=== PATIENT | female | born 1940 | race Caucasian/White ===

== ENCOUNTER → 2017-09-10 | Outpatient (CLI) | payer MEDICARE, MEDICAID ==
[~2017-09-10] MED LIST: ALBUTEROL2.5 MG/0.1 INH; ASPIR 8181 MG PO; ATORVASTATIN CA40 MG PO; AZITHROMYCIN 2250 MG PO; CARDIZEM CD240 MG PO; CARTIA XT240 M1 PO; CEFDINIR300 MG PO; COZAAR 25 MG TA25 M1 PO; DEMADEX 2020 MG/1 TA PO; DEMADEX20 MG PO; FUROSEMIDE 80 M80 MG PO; HUMALOG100 UNIT/1 SUBQ; HYDROCHLOROTHIA25 M2 PO; LANTUS SUBQ; LIPITOR80 MG PO; MACROBID 100 M100 M3 PO; METOLAZONE 2.52.5 M1 PO; MUCINEX600 MG PO; NOVOLOG100 UNIT/1 SUBQ; POTASSIUM20 PO; PREDNISONE 10 M10 M1 PO; PREDNISONE 20 M20 MG PO; PROTONIX40 M1 PO; TESSALON PERLE100 M1 PO; TRULICITY0.75 MG/0. INJECTION; TRULICITY0.75 MG/0. SUBQ
--- NOTE | 2017-10-11 10:53 | SLEEP ---
[address] [address] SLEEP STUDY REPORT Name: JOE BREWSTER Room: [facility]#: [id number] Admission: 09/10/17 Attend Phys: Eliseo Pino MD Discharge: Date of : 38 Report #: [id number] THIS REPORT FOR: //name// CC: Eliseo Pino This study has been reviewed in its entirety by a board certified sleep specialist DATE OF SERVICE: 09/10/2017 INDICATION FOR SLEEP STUDY: Excessive daytime sleepiness. INTERPRETATION: Total duration of the study is 399.9 minutes. During this time duration, we recorded a total sleep time of 233 minutes. The sleep initially was recorded at 10:46 p.m. The patient's light out time was 10:20 p.m. Overall sleep efficiency as mentioned is 58.1%, REM onset is first recorded at around midnight. N1 sleep duration is significantly elevated to 47%, N2 duration is 49%, there is no N3 sleep recorded and REM duration is 4%. This is a split night sleep study. During the initial part of the sleep study, the patient is not on CPAP therapy for 400 minutes. During this time duration, we recorded a sleep time of 233 minutes. This included 9.5 minutes in REM sleep, the rest being non-REM sleep. During the diagnostic portion of the sleep study, we recorded a large number of hypopneas. A total of 150 hypopneas were recorded in addition to 5 respiratory effort related arousals. The patient's overall apnea-hypopnea index was 38.7 with a respiratory disturbance index of 40. Body position data indicates the patient was observed in the supine position asleep for 131 minutes. The rest of the time, the patient was on the right side. Events did appear to be more common when the patient was lying supine. Supine apnea-hypopnea index was 44.6. Mean heart rate during the diagnostic portion of the sleep study was 88.3 with a periodic limb movement index elevated to 114. Periodic limb movement index with arousals was 29.7. Arousal index during the diagnostic portion of the sleep study was 65. We did record multiple desaturations. The patient spent 31.3 minutes below an O2 saturation of 88% during the diagnostic portion of the sleep study. There is also mention in the records that the patient being tried on positive airway pressure therapy; however, there is no documented sleep time on positive airway pressure therapy. My understanding from the records is that the patient may have had a short trial on CPAP. The pressure on the CPAP as mentioned is set as being zero; otherwise essentially, the whole sleep study is a diagnostic sleep study. IMPRESSION: Obstructive sleep apnea with nocturnal hypoxemia, [place] [address] SLEEP STUDY REPORT Name: JOE BREWSTER Room: [facility]#: [id number] Admission: 09/10/17 Attend Phys: Eliseo Pino MD Discharge: Date of : 38 Report #: [id number] RECOMMENDATIONS: 1. Recommend proceeding to a repeat sleep study for positive airway pressure titration. 2. Recommend avoiding driving or other activities requiring vigilance if drowsy. This entire sleep study was reviewed by board certified sleep physician. <ELECTRONICALLY SIGNED> By: Den Oliveros MD 10/11/17 1053 1431 1539Ajack Oliveros MD /nt
== END ==
LOC: M.SLEEPLAB 19:22
DX: G47.33 Obstructive sleep apnea (adult) (pediatric) (principal); J45.909 Unspecified asthma, uncomplicated; I12.9 Hypertensive chronic kidney disease with stage 1 through stage 4 chronic kidney disease, or unspecified chronic kidney disease; E11.22 Type 2 diabetes mellitus with diabetic chronic kidney disease; N18.3 Chronic kidney disease, stage 3 (moderate); Z79.4 Long term (current) use of insulin

== ENCOUNTER 2018-01-15 10:03 | Emergency (ER) | payer MEDICARE, MEDICAID ==
[~2018-01-15] VITALS: Ht 160 cm; Wt 97.5 kg
[~2018-01-15 10:03] MED LIST changes: -ATORVASTATIN CA40 MG PO; -AZITHROMYCIN 2250 MG PO; -CEFDINIR300 MG PO; -COZAAR 25 MG TA25 M1 PO; -DEMADEX 2020 MG/1 TA PO; -DEMADEX20 MG PO; -MACROBID 100 M100 M3 PO; -MUCINEX600 MG PO; -NOVOLOG100 UNIT/1 SUBQ; -POTASSIUM20 PO; -PREDNISONE 10 M10 M1 PO; -TRULICITY0.75 MG/0. INJECTION; -TRULICITY0.75 MG/0. SUBQ
[2018-01-15] MEDS ORDERED: TRULICITY0.75 MG/0. INJECTION (10:15)
[2018-01-15 10:34] LABS: ABSOLUTE BASOPHILS 0.1 thou/uL (0.0-0.2); ABSOLUTE EOSINOPHILS 0.3 thou/uL (0.0-0.7); ABSOLUTE LYMPHOCYTES 1.8 thou/uL (0.8-5.3); ABSOLUTE MONOCYTES 0.9 thou/uL (0.0-1.2); ABSOLUTE NEUTROPHILS 6.9 thou/uL (1.6-8.1); BASOPHILS 0.7 %; EOSINOPHILS 2.9 %; HEMATOCRIT 36.2 % (37.0-47.0); HEMOGLOBIN 12.1 gm/dL (12.0-15.0); LYMPHOCYTES 17.9 %; MCHC 33.4 g/dL (28.0-37.0); MCV 83.8 fL (80.0-100.0); MONOCYTES 9.2 %; MPV 7.6 fl. (7.2-11.1); NUCLEATED RBCS 0 /100WBC; PLATELET COUNT* 231 thou/uL (150-400); POLYS 69.3 %; RBC 4.32 mil/uL (4.20-5.00); RDW-CV 15.1 % (10.5-14.5); WBC 9.9 thou/uL (4.0-11.0)
[2018-01-15 10:43] LABS: INR 1.1; PROTIME 11.1 Seconds (9.20-11.50)
[2018-01-15 10:44] LABS: URINE BILIRUBIN NEGATIVE (Negative); URINE BLOOD NEGATIVE (Negative); URINE CLARITY CLEAR; URINE COLOR YELLOW; URINE GLUCOSE-RANDOM NEGATIVE (Negative); URINE KETONES NEGATIVE (Negative); URINE LEUKOCYTES TRACE (Negative); URINE NITRITE NEGATIVE (Negative); URINE PROTEIN NEGATIVE (Negative); URINE UROBILINOGEN 0.2 E.U./dl (0.2-1.0)
[2018-01-15 10:52] LABS: CASTS None Seen /LPF (None Seen); CRYSTALS None Seen /LPF (None Seen); MUCUS None Seen strn/LPF (None Seen); SQUAMOUS >10 Many /LPF (0-3); URINE RBC 0-2 Rare /HPF (0-2); URINE WBC 6-15 Few /HPF (0-5)
[2018-01-15 11:11] LABS: ANION GAP 5 mmol/L (7-16); BUN 34 mg/dL (7-18); CALCIUM 8.1 mg/dL (8.5-10.1); CHLORIDE 103 mmol/L (98-107); CO2 33 mmol/L (21-32); CREATININE 1.8 mg/dL (0.6-1.3); GLUCOSE 134 mg/dL (70-99); SODIUM 141 mmol/L (136-145)
[2018-01-15 11:15] LABS: ALBUMIN 3.1 g/dL (3.4-5.0); ALKALINE PHOSPHATASE 89 U/L (46-116); SGOT 17 U/L (15-37); SGPT 28 U/L (30-65); TOTAL BILIRUBIN 0.7 mg/dL (<0.1-1.0); TOTAL PROTEIN 6.8 g/dL (6.4-8.2)
[2018-01-15] MEDS ORDERED: POTASSIUM20 PO (12:09)
[2018-01-15] MEDS ORDERED: MACROBID 100 M100 M3 PO (12:09)
[2018-01-15 12:12] VITALS: BP 137/70
--- NOTE | 2018-01-15 16:24 | EKG ---
[place] [address] ELECTROCARDIOGRAM REPORT Name: JOE BREWSTER Room: [facility]#: [id number] Admission: 01/15/18 Attend Phys: Discharge: Date of : 38 Report #: [id number] THIS REPORT FOR: //name// [facility] ED Test Date: 2018-01-15 Test Time: 10:42:56 Pat Name: JOE BREWSTER Department: Room: Gender: F Professor Of Rhetoric: : 1940 Requested By: Sarah Jay Order Number: [id number] MD: Randell Martinez Measurements Intervals [place] Rate: 97 P: IN: QRS: 62 QRSD: 147 T: 21 QT: 381 QTc: 484 Interpretive Statements Atrial fibrillation Right bundle branch block Baseline wander in lead(s) V6 Compared to ECG 01/09/2017 08:24:45 Right bundle-branch block now present Electronically Signed On 01-15-2018 16:24:36 CDT by Randell Martinez [email or web address] <ELECTRONICALLY SIGNED> By: Randell Martinez MD, [facility] 01/15/18 1624 1042 104 Randell Martinez MD, FACC /EPI
== END 2018-01-15 12:43 | disposition home or self-care (01) ==
LOC: M.ERS 10:03
PROVIDERS: Physician Assistant Surgical
DX: N39.0 Urinary tract infection, site not specified (principal); R04.0 Epistaxis; E87.6 Hypokalemia; I11.0 Hypertensive heart disease with heart failure; I50.9 Heart failure, unspecified; I48.91 Unspecified atrial fibrillation; E11.9 Type 2 diabetes mellitus without complications; Z79.4 Long term (current) use of insulin

== ENCOUNTER 2018-01-23 12:02 | Emergency (ER) | payer MEDICARE, MEDICAID ==
[~2018-01-23] VITALS: Ht 160 cm; Wt 97.5 kg
[~2018-01-23 12:02] MED LIST changes: +MACROBID 100 M100 M3 PO; +POTASSIUM20 PO; +TRULICITY0.75 MG/0. INJECTION
[2018-01-23 13:42] LABS: ABSOLUTE BASOPHILS 0.1 thou/uL (0.0-0.2); ABSOLUTE EOSINOPHILS 0.2 thou/uL (0.0-0.7); ABSOLUTE LYMPHOCYTES 1.9 thou/uL (0.8-5.3); ABSOLUTE MONOCYTES 0.9 thou/uL (0.0-1.2); ABSOLUTE NEUTROPHILS 6.9 thou/uL (1.6-8.1); BASOPHILS 0.7 %; HEMATOCRIT 38.4 % (37.0-47.0); HEMOGLOBIN 12.7 gm/dL (12.0-15.0); LYMPHOCYTES 18.7 %; MCH 27.8 pg (26.0-34.0); MCHC 33.2 g/dL (28.0-37.0); MCV 83.8 fL (80.0-100.0); MONOCYTES 8.6 %; MPV 7.4 fl. (7.2-11.1); NUCLEATED RBCS 0 /100WBC; PLATELET COUNT* 259 thou/uL (150-400); RBC 4.58 mil/uL (4.20-5.00); RDW-CV 15.4 % (10.5-14.5); WBC 9.9 thou/uL (4.0-11.0)
[2018-01-23 13:52] LABS: APTT 27.2 Seconds (25.0-31.3); INR 1.1; PROTIME 10.9 Seconds (9.20-11.50)
[2018-01-23 13:59] LABS: CALCIUM 8.7 mg/dL (8.5-10.1); CREATININE 1.8 mg/dL (0.6-1.3); POTASSIUM 4.5 mmol/L (3.5-5.1)
[2018-01-23 14:01] LABS: ALBUMIN 3.4 g/dL (3.4-5.0); TOTAL BILIRUBIN 0.5 mg/dL (<0.1-1.0); TOTAL PROTEIN 7.3 g/dL (6.4-8.2)
[2018-01-23 14:27] VITALS: BP 117/63
== END 2018-01-23 14:28 | disposition home or self-care (01) ==
LOC: M.ERS 12:02
PROVIDERS: Physician Assistant
DX: R04.0 Epistaxis (principal); E11.65 Type 2 diabetes mellitus with hyperglycemia; I11.0 Hypertensive heart disease with heart failure; I50.9 Heart failure, unspecified; I48.91 Unspecified atrial fibrillation; Z79.4 Long term (current) use of insulin

== ENCOUNTER 2018-03-13 13:37 | Inpatient (IN) | payer MEDICARE, MEDICAID ==
[~2018-03-13] VITALS: Ht 160 cm; Wt 108.0 kg
[2018-03-13 13:43] VITALS: BP 134/46
[2018-03-13] MEDS ORDERED: NOVOLOG100 UNIT/1 SUBQ (13:47)
[2018-03-13] MEDS ORDERED: ATORVASTATIN CA40 MG PO (13:48)
[2018-03-13] MEDS ORDERED: COZAAR 25 MG TA25 M1 PO (13:49)
[2018-03-13] MEDS ORDERED: TRULICITY0.75 MG/0. SUBQ (13:50)
[2018-03-13 14:05] LABS: ABSOLUTE BASOPHILS 0.2 thou/uL (0.0-0.2); ABSOLUTE EOSINOPHILS 0.3 thou/uL (0.0-0.7); ABSOLUTE LYMPHOCYTES 1.9 thou/uL (0.8-5.3); ABSOLUTE MONOCYTES 0.8 thou/uL (0.0-1.2); ABSOLUTE NEUTROPHILS 6.3 thou/uL (1.6-8.1); BASOPHILS 1.6 %; EOSINOPHILS 3.3 %; HEMATOCRIT 29.1 % (37.0-47.0); HEMOGLOBIN 9.5 gm/dL (12.0-15.0); LYMPHOCYTES 19.9 %; MCH 26.9 pg (26.0-34.0); MCHC 32.6 g/dL (28.0-37.0); MCV 82.4 fL (80.0-100.0); MONOCYTES 8.3 %; MPV 7.3 fl. (7.2-11.1); NUCLEATED RBCS 0 /100WBC; PLATELET COUNT* 271 thou/uL (150-400); POLYS 66.9 %; RBC 3.54 mil/uL (4.20-5.00); RDW-CV 14.5 % (10.5-14.5); WBC 9.3 thou/uL (4.0-11.0)
[2018-03-13 14:12] LABS: ANION GAP 5 mmol/L (7-16); BUN 28 mg/dL (7-18); CHLORIDE 103 mmol/L (98-107); CO2 33 mmol/L (21-32); GLUCOSE 229 mg/dL (70-99); POTASSIUM 4.1 mmol/L (3.5-5.1); SODIUM 141 mmol/L (136-145)
[2018-03-13 14:23] LABS: ALBUMIN 3.2 g/dL (3.4-5.0); ALKALINE PHOSPHATASE 89 U/L (46-116); NT-PRO BRAIN NAT PEPTIDE 1130 pg/mL (<300); SGOT 12 U/L (15-37); SGPT 14 U/L (30-65); TOTAL BILIRUBIN 0.3 mg/dL (<0.1-1.0); TOTAL PROTEIN 6.8 g/dL (6.4-8.2); TROPONIN-I LEVEL <0.06 ng/mL (<0.06)
[2018-03-13 14:27] LABS: APTT 27.3 Seconds (25.0-31.3); INR 1.2; PROTIME 11.2 Seconds (9.20-11.50)
[2018-03-13 15:54] VITALS: BP 132/40
[2018-03-13 16:10] VITALS: BP 111/41
--- NOTE | 2018-03-13 17:40 | EKG ---
[place] [address] ELECTROCARDIOGRAM REPORT Name: JOE BREWSTER Room: [address] ADM IN .R.#: [id number] Admission: 03/13/18 Attend Phys: Georgi Garcia MD Discharge: Date of : 38 Report #: [id number] THIS REPORT FOR: //name// [facility] ED Test Date: 2018-03-13 Test Time: 13:49:06 Pat Name: JOE BREWSTER Department: Room: [facility] Gender: Development Disability Specialist: Saroj CHUNG : 1940 Requested By: Herrera Casiano Order Number: [id number] MD: Cuco Rosario Measurements Intervals [place] Rate: 68 P: [place]: QRS: 69 QRSD: 152 T: 34 QT: 434 QTc: 462 Interpretive Statements Atrial fibrillation Right bundle branch block Compared to ECG 01/15/2018 10:42:56 No significant changes Electronically Signed On 03-13-2018 17:40:08 CDT by Cuco Rosario [email or web address] <ELECTRONICALLY SIGNED> By: Cuco Rosario MD, [facility] 03/13/18 1740 1349 1349 Cuco Rosario MD, [facility] /EPI
[2018-03-13 20:00] VITALS: BP 126/54
[2018-03-14] VITALS (7 sets, daily range): BP systolic 123–140; BP diastolic 53–70
--- NOTE | 2018-03-14 03:07 | NUR ---
ASSUMED PT CARE RECEIVED REPORT RECEIVED FORM NURSE. PT IS ALERT AWAKE ORIENTED X4 PLEASANT. AFIB ON THE MONITOR. VITALS SINGS WITHIN NORMAL LIMIT. MEDICATION WERE ADMINISTERED INCLUDING INSULIN. ASSESSEMENT PERFORMED. REFER TO CHARTING. PT LAYINGI N BED ON 2 L NC SATURATION IN 95%. NO SOB NOTICED. HEW HEART RATE IS CONTROL BETWEEN 80 S AND 65S. WILL CONTINUE TO MONITOR.
[2018-03-14 04:50] LABS: CALCIUM 8.1 mg/dL (8.5-10.1); CREATININE 2.1 mg/dL (0.6-1.3); MAGNESIUM 2.1 mg/dL (1.8-2.4)
[2018-03-14 04:54] LABS: POTASSIUM 5.1 mmol/L (3.5-5.1)
--- NOTE | 2018-03-14 10:39 | NUR ---
ASSUMED CARE OF PT AT 0730. PT RESTING IN BED WAITING FOR BREAKFAST. PT A&0X4, DENIES ANY PAIN OR SHORTNESS OF BREATH AT THIS TIME. PT TRACING AFIB ON THE WAREHOUSE RECEIVER, RATE CONTROLLED. EDEMA NOTED TO BILATERAL LE'S AND FEET-+1. PT RECEIVING LASIX AND STEROIDS. PT ON STRICT I/O, CALLS APPROPRAITELY TO GO TO THE BATHROOM WITH SBA. PT ON RA SAT 93%. PT DOES HAVE SHORTNESS OF BREATH WITH ACTIVITY, PT WEARS 2L NC AT [facility]. COLOSTOMY TO DEPENDENT DRAINAGE. PT GOAL FOR TODAY IS TO INCREASE ACTIVITY, MONITOR I/O AND UP TO CHAIR FOR MEALS. AM ASSESSMENT CHARTED. MEDICATIONS PER OCT. PT REPOSITIONS SELF. HOURLY ROUNDING OBSERVED. BED IN LOW POSITION. CALL LIGHT WITHIN REACH. WILL CONTINUE PLAN OF CARE.
--- NOTE | 2018-03-14 11:01 | 2DMMODE ---
[place] [address] 2 D/M-MODE ECHOCARDIOGRAM Name: JOE BREWSTER Room: [address] IN .R.#: [id number] Admission: 03/13/18 Attend Phys: Georgi Garcia, Discharge: Date of : 38 Date of Service: 03/14/18 1101 Report #: [id number] THIS REPORT FOR: //name// APPROVED REPORT Study performed: 03/14/2018 09:06:39 EXAM: Comprehensive 2D, Doppler, and color-flow Echocardiogram Patient Location: Bedside BSA: 2.06 HR: 75 bpm BP: 130/66 mmHg Other Information Study Quality: Fair Indications Dyspnea 2D Dimensions LVEF(%): 78.29 (>50%) IVSd: 10.83 (7-11mm) LVOT Diam: 21.18 (18-24mm) LVDd: 58.35 mm PWd: 10.34 (7-11mm) Ascending Ao: 28.66 (22-36mm) LVDs: 30.58 (25-40mm) Aortic Root: 30.06 mm Branch's LVEF: 78.29 % Volumes Left Atrial Volume (Systole) LA ESV Index: 56.40 mL/m2 Aortic Valve AoV Peak Kal.: 2.64 m/s AO Peak Gr.: 27.88 mmHg LVOT Max P.60 mmHg AO Mean Gr.: 16.50 mmHg LVOT Mean P.23 mmHg LVOT Max V: 1.18 m/s AO V2 VTI: 57.48 cm LVOT Mean V: 0.84 m/s ALEXX (VTI): 1.64 cm2 LVOT V1 VTI: 26.80 cm Mitral Valve MV Mean Gr.: 5.61 mmHg E/A Ratio: 5.44 MV Decel. Time: 215.48 ms MV E Max Kal.: 1.46 m/[place] [address] 2 D/M-MODE ECHOCARDIOGRAM Name: JOE BREWSTER Room: [address] IN ..#: [id number] Admission: 03/13/18 Attend Phys: Georgi Garcia, Discharge: Date of : 38 Date of Service: 03/14/18 1101 Report #: [id number] MV PHT: 62.49 ms MVA (PHT): 3.52 cm2 TDI E/Lateral E': 13.27 E/Medial E': 14.60 Medial E' Kal.: 0.10 m/s Lateral E' Kal.: 0.11 m/s Pulmonary Valve PV Peak Kal.: 1.03 m/s PV Peak Gr.: 4.28 mmHg Tricuspid Valve RAP Estimate: 5.00 mmHg TR Peak Gr.: 32.91 mmHg RVSP: 37.91 mmHg PA Pressure: 37.91 mmHg Left Ventricle The left ventricle is normal size. There is normal LV segmental wall motion. Moderate concentric left ventricular hypertrophy. Left ventricular systolic function is normal. LVEF is 60-65%. The left ventricular diastolic function is normal. Right Ventricle Right ventricle is dilated. Right ventricle is mildly hypokinetic. Atria Left atrium is dilated. Right atrium is dilated. Aortic Valve Aortic valve is calcified. No aortic regurgitation is present. Mild aortic stenosis. Mitral Valve There is mitral annular calcification. Mitral valve leaflets are calcified. Mild mitral regurgitation. No evidence of mitral valve stenosis. Tricuspid Valve The tricuspid valve is normal in structure. Moderate tricuspid regurgitation. Pulmonic Valve The pulmonary valve is normal in structure. There is no pulmonic valv[place] [address] 2 D/M-MODE ECHOCARDIOGRAM Name: JOE BREWSTER Room: [address]#: [id number] Admission: 03/13/18 Attend Phys: Georgi Garcia, Discharge: Date of : 38 Date of Service: 03/14/18 1101 Report #: [id number] Great Vessels The aortic root is normal in size. IVC is normal in size and collapses with >50% inspiration Pericardium There is no pericardial effusion. <Conclusion> LVEF is 60-65%. There is normal LV segmental wall motion. LVEF is 60-65%. Moderate concentric left ventricular hypertrophy. Right ventricle is dilated. Right ventricle is mildly hypokinetic. Left atrium is dilated. Right atrium is dilated. Mild aortic stenosis. No aortic regurgitation is present. Mild mitral regurgitation. No evidence of mitral valve stenosis. There is mitral annular calcification. Mitral valve leaflets are calcified. Moderate tricuspid regurgitation. There is no pericardial effusion. <ELECTRONICALLY SIGNED> By: Alexx Pearl MD, FACC 03/14/18 1101 1101 1101 Alexx Pearl MD, FACC /INF
--- NOTE | 2018-03-14 16:02 | NUR ---
NO ACUTE CHANGES THROUGHOUT SHIFT. REFER TO CHARTING. PT UP TO RECLINER TODAY FOR MEALS, TOLERATED WELL. PT HAD ECHO TODAY- EF 60-65%. PT FAMILY HERE TODAY AND UPDATED ON CURRENT CARE PLAN. PT PROGRESSING TOWARDS GOALS. CONTINUES TO TRACE AFIB ON THE DRUG ROOM CLERK. ON RA SAT UPPER 90'S. STRICT I/O IN PLACE. PT RECEIVING IV LASIX AND STEROIDS. MEDICATIONS PER OCT. PT REPOSITIONS SELF. HOURLY ROUNDING OBSERVED. BED IN LOW POSITION. CALL LIGHT WITHIN REACH. WILL CONTINUE PLAN OF CARE.
[2018-03-15 00:01] VITALS: BP 109/58
[2018-03-15 04:02] VITALS: BP 139/40
--- NOTE | 2018-03-15 05:35 | NUR ---
ASSUMED CARE OF PATIENT AT 1930. PATIENT SLEPT WELL THROUGHOUT THE NIGHT. PATIENT IS A&O X4, UP AD RADHA IN HER ROOM. ALL VSS. A-FIB WITH CONTROLLED RATES NOTED ON TELEMETRY. PATIENT IS ON ROOM AIR DURING THE DAY AND 2L NC AT HS. PATIENT DENIES PAIN. VOIDING WELL IN THE TOILET; CARES FOR COLOSTOMY HERSELF. WILL CONTINUE TO MONITOR PT.
[2018-03-15 05:50] LABS: CALCIUM 7.9 mg/dL (8.5-10.1); MAGNESIUM 2.2 mg/dL (1.8-2.4); POTASSIUM 4.7 mmol/L (3.5-5.1)
[2018-03-15 08:00] VITALS: BP 137/59
--- NOTE | 2018-03-15 10:44 | NUR ---
ASSUMED CARE OF PT AT 0730. PT RESTING IN BED WAITING FOR BREAKFAST. PT A&0X4, DENIES ANY SHORTNESS OF BREATH OR PAIN AT THIS TIME. PT STATES SHE IS READY TO GO HOME. TRACING AFIB ON THE CELL INSTALLER. RATE CONTROLLED. +1 EDEMA NOTED TO BILATERAL FEET. PT ON RA SAT UPPER 90'S. COLOSTOMY TO DEPENDENT DRAIANGE- PT CARES FOR OWN COLOSTOMY. PT UP AD RADHA IN ROOM. STRICT I/O IN PLACE. PT HAD REPEAT CXR THIS AM-REFER TO RESULTS. PT GOAL FOR TODAY IS TO DISCHARGE HOME THIS AFTERNOON AND TRANSITION TO PO LASIX. AM ASSESSMENT CHARTED. MEDICATIONS PER OCT. PT REPOSITIONS SELF. HOURLY ROUNDING OBSERVED. BED IN LOW POSITION. CALL LIGHT WITHIN REACH. WILL CONTINUE PLAN OF CARE.
[2018-03-15 12:15] VITALS: BP 144/60
[2018-03-15 16:50] VITALS: BP 109/60
--- NOTE | 2018-03-15 18:47 | NUR ---
NO ACUTE CHANGES THROUGHOUT SHIFT. REFER TO CHARTING. DR LIN HERE TO SEE PT AND ORDERS RECEIVED FOR NEPHROLOGY CONSULT, RENAL ULTRASOUND AND CT CHEST. REFER TO RESULTS. PT CONTINUES TO TRACE AFIB ON THE STEEL POURER. IV LASIX TRANSITIONED TO PO. PROGRESSING TOWARDS GOALS. PROBABLE DISCHARGE HOME TOMORROW 03/16. PT ON RA SAT UPPER 90'S. DENIES ANY SHORTNESS OF BREATH OR PAIN. COLOSTOMY TO DEPENDENT DRAINAGE. PT UP AD RADHA IN ROOM. STRICT I/O IN PLACE. MEDICATIONS PER OCT. PT REPOSITIONS SELF. HOURLY ROUNDING OBSERVED. BED IN LOW POSITION. CALL LIGHT WITHIN REACH. WILL CONTINUE PLAN OF CARE.
[2018-03-15 20:00] VITALS: BP 123/58
[2018-03-16] VITALS: BP 118/57
[2018-03-16 04:00] VITALS: BP 119/59
--- NOTE | 2018-03-16 04:56 | NUR ---
END SHIFT: PT RESTED WELL. NO COMPLAINTS. NO PAIN. 2L NC APPLIED FOR HS PER HOME DOSE. VSS. ASSESSMENT UNCHANGED. AFIB ON MONITOR- RATE CONTROLLED. PATIENT FOLLOWS STRICT I&O VERY WELL. COLOSTOMY BAG DRAINED OVER SHIFT. AWAITING DC TO HOME. PROGRESSING TOWARDS GOALS. SAFETY PRECAUTIONS IN PLACE. CALL LIGHT IN REACH. PERFORMED HOURLY ROUNDING. WILL CONT TO MONITOR.
[2018-03-16 05:41] LABS: HEMATOCRIT 28.8 % (37.0-47.0); HEMOGLOBIN 9.4 gm/dL (12.0-15.0); MCH 26.6 pg (26.0-34.0); MCHC 32.7 g/dL (28.0-37.0); MCV 81.5 fL (80.0-100.0); MPV 7.6 fl. (7.2-11.1); RBC 3.54 mil/uL (4.20-5.00); RDW-CV 14.7 % (10.5-14.5); WBC 11.9 thou/uL (4.0-11.0)
[2018-03-16 06:43] LABS: ALBUMIN 3.2 g/dL (3.4-5.0); CREATININE 1.8 mg/dL (0.6-1.3); MAGNESIUM 2.2 mg/dL (1.8-2.4); POTASSIUM 3.9 mmol/L (3.5-5.1); TOTAL BILIRUBIN 0.3 mg/dL (<0.1-1.0); TOTAL PROTEIN 6.1 g/dL (6.4-8.2)
[2018-03-16 07:59] VITALS: BP 159/72
--- NOTE | 2018-03-16 09:59 | NUR ---
ASSUMED CARE OF PT THIS AM AROUND 0715- ETHERNET NETWORK ARCHITECT IN PLACE ORDERED, TRACING A-FIB/RATE CONTROLLED- UPON ASSESSMENT PT NOTED TO BE RESTING IN BED, WATCHING TV- PT A&O X4- CONTINENT OF BOWEL AND BLADDER- UP AD-RADHA IN ROOM, STEADY GAIT NOTED- EXPIRATORY WHEEZING WITH NOTED COUGHT NOTED- RESP EVEN AND UN-LABORED AT REST, DYSPNEA NOTED ON EXERTION- VSS, O2 SAT 93% ON RA- ABDOMEN SOFT/ROUND/OBESE, BS ACTIVE- LLQ COLOSTOMY NOTED WITH LIGT BROWN SEMI-SOFT STOOL NOTED-COLOSTOMY NOTED TO LEAK THIS AM WITH NEW 2 PIECE APPLIANCE REPLACED THIS AM- IV NOTED TO RIGHT WRIST INTACT ANS SL, IV LASIX GIVEN THIS AM PRESCIBED-GOOD PO INTAKE NOTED THIS AM WITH BREAKFAST, BS MONITORED ORDERED, SCHEDULED AND SSI INDICATED- PT DENIES ANY C/O PAIN/DISCOMFORT THIS AM- CALL LIGHT AND PERSONAL BELONGINGS WITH IN REACH- HOURLY ROUNDS IN PLACE R/T SAFETY/NEEDS- ALL NEEDS MET AT THIS TIME-WCTM
[2018-03-16 12:14] VITALS: BP 131/65
[2018-03-16 15:36] VITALS: BP 116/55
[2018-03-16] MEDS ORDERED: DEMADEX 2020 MG/1 TA PO (16:16)
[2018-03-16] MEDS ORDERED: POTASSIUM20 PO (16:17)
--- NOTE | 2018-03-16 16:38 | NUR ---
ORDERS RECIVED FOR OKAY TO D/C HOME THIS SHIFT PER - IV TO RIGHT WRIST ALONG WITH SHOE SHANKER D/C'D PRIOR TO D/C- D/C EDUCATION/TEACHING GIVEN TO PT AND FAMILY MEMBER AT TIME OF D/C WITH ALL QUESTIONS AND CONCERNS ADDRESSED PRIOR TO D/C- WRITTEN EDUCATION ALONG WITH WRITTEN SCRIPTS PROVIDED TO PT PRIOR TO D/C- BELONGINGS PACKED AND ACCOUNTED FOR PER PT AND FAMILY MEMBER PRIOR TO D/C- PT ESCORTED PER TECH, VIA W/C WITH BELONGINGS TO VEHICLE AT 1640- NO PROBLEMS TO NOTE AT TIME OF D/C
--- NOTE | 2018-03-17 11:11 | CON ---
[address] [address] CONSULTATION Name: JOE BREWSTER Room: [address] IN .R.#: [id number] Admission: 03/13/18 Attend Phys: Georgi Garcia MD Discharge: 03/16/18 Date of : 38 Report #: [id number] THIS REPORT FOR: //name// CC: Eliseo Garcia DATE OF SERVICE: 03/15/2018 Nephrology Consultation CONSULTING PHYSICIAN: Dr. Henderson. REASON FOR CONSULTATION: Acute kidney injury. HISTORY OF PRESENT ILLNESS: A 77-year-old female who was admitted with shortness of breath and lower extremity edema. She was on Lasix 80 mg, taking it mostly once a day, occasionally twice a day, but had worsening of her symptoms and came in for further evaluation. She has been seen by cardiology and has been put on IV diuretics. Her swelling is markedly improved. Her shortness of breath has improved. She presently has no complaints. She sees Dr. House as an outpatient, last saw him on 11/29. REVIEW OF SYSTEMS: Constitutional, psych, heme, eyes, ENT, respiratory, cardiac, GI, , endocrine, all negative except as documented above. PAST MEDICAL HISTORY: Chronic kidney disease stage 3, hypertension, diabetes type 2, history of GERD, a-fib, sleep apnea, dyslipidemia, history of colon resection. FAMILY HISTORY: Father had kidney disease. SOCIAL HISTORY: No tobacco. PHYSICAL EXAMINATION: VITAL SIGNS: Blood pressure 109/60, pulse 81, respirations 17, temperature 36.9. GENERAL: No acute distress. EYES: Opens eyes. Extraocular muscles intact. EARS: Externally normal. CARDIOVASCULAR: Regular rate. LUNGS: Diminished breath sounds. ABDOMEN: Soft. LYMPHATICS: No significant pitting edema. PSYCHIATRIC: Awake and alert. LABORATORY DATA: White cell count 9.3, hemoglobin 9.5, platelets 271[place] [address] CONSULTATION Name: JOE BREWSTER Room: [address]#: [id number] Admission: 03/13/18 Attend Phys: Georgi Garcia MD Discharge: 03/16/18 Date of : 38 Report #: [id number] 139, potassium 4.7, chloride 103, bicarbonate 32, BUN 51, creatinine 2, glucose 211, calcium 7.9, magnesium 2.2. ASSESSMENT: 1. Acute kidney injury. 2. Chronic kidney disease stage 4. 3. Diastolic heart failure. 4. Insulin-dependent diabetes. 5. Atrial fibrillation. 6. Mild proteinuria with an outpatient urine protein to creatinine ratio of 225. PLAN: Renal function appears to be stable on current dose of diuretic. Her creatinine in the last 3 days has been 2 to 2.1. This may be a new baseline. Looking back, on 01/31, it was 1.8. In 06/2017, her creatinine was 2. She is currently on a diuretic, which cardiology is managing and has just recently reduced, okay with me to transition to oral diuretic. We will defer to cardiology. She is also on losartan. We would consider holding it if the creatinine bumps up with diuresis, but at present time, creatinine overall appears to be stable and similar to the value from 06/2017. From my standpoint, she can follow up as an outpatient with Dr. House in 2 to 3 weeks and have a basic metabolic panel done in 1 week upon discharge. She was educated on a low sodium diet, as well as 1.5 L per day fluid restriction. Thank you for requesting my opinion in the care and management of this patient. I will sign off. Please call with any questions. <ELECTRONICALLY SIGNED> By: Marcial Lyons MD 03/17/18 1111 1702 0339Ataye Lyons MD /nt
--- NOTE | 2018-03-27 12:52 | CON ---
[address] [address] CONSULTATION Name: JOE BREWSTER Room: [address] IN M.R.#: [id number] Admission: 03/13/18 Attend Phys: Georgi Garcia MD Discharge: 03/16/18 Date of : 38 Report #: [id number] THIS REPORT FOR: //name// CC: Eliseo Garcia DATE OF SERVICE: 03/14/2018 CHIEF COMPLAINT: Shortness of breath, weight gain, fluid retention. HISTORY OF PRESENT ILLNESS: The patient is a 77-year-old female with a history of persistent rate controlled atrial fibrillation. She presented to her primary doctor's office, Dr. Pino's office with increasing lower extremity swelling and evidence of congestive heart failure. Predominantly within the lower extremity, but also her abdomen. In regards to her atrial fibrillation, she is asymptomatic. She apparently has been in atrial fibrillation since 2017 when she was diagnosed and apparently this was at [facility]. She has been on a rate control strategy and has no complaints of palpitations, irregular heartbeat or otherwise. However, she is not anticoagulated. She had been tried on full dose Xarelto and Eliquis in the past, but had vaginal bleeding. Currently, she is not fully anticoagulated. She has no documented history of stroke or TIA. She has no new symptoms of visual changes, numbness or weakness or slurred speech. She has no history of coronary artery disease. She apparently had a stress test in 2017 before elective colon resection for chronic diverticulitis. She now has an ostomy bag, which currently does not have any bleeding issues. She reports no falls. PAST MEDICAL HISTORY: Significant for atrial fibrillation, chronic lower extremity edema, status post colostomy, diabetes mellitus, hypertension. HOME MEDICATIONS: Include Protonix 40 mg daily, aspirin 81 mg daily, Cardizem 240 mg daily, atorvastatin 40 mg daily, losartan 25 mg daily, Trulicity 0.75 mg subcutaneous weekly and she had been on oral Lasix 80 mg p.o. b.i.d. ALLERGIES: She has no known drug allergies. FAMILY HISTORY: Noncontributory. REVIEW OF SYSTEMS: GASTROINTESTINAL: She denies hematemesis, melena or abdominal pain. GENITOURINARY: No [place] [address] CONSULTATION Name: JOE BREWSTER Room: [address]#: [id number] Admission: 03/13/18 Attend Phys: Georgi Garcia MD Discharge: 03/16/18 Date of : 38 Report #: [id number] NEUROLOGIC: Denies numbness, weakness, slurred speech. MUSCULOSKELETAL: Denies falls. HEMATOLOGIC: No anemia. RENAL: No history of renal failure. CARDIOVASCULAR: No chest pain. Positive dyspnea with exertion. No orthopnea, no PND, no palpitations. PHYSICAL EXAMINATION: VITAL SIGNS: This morning, her blood pressure is 132/57, pulse is 96. GENERAL: Pleasant, obese, elderly female. Her weight is 42 kilograms. She is in no apparent distress. HEENT: Eyes: EOMs are intact. No facial asymmetry. There is no evidence of trauma. NECK: Supple. No jugular venous distention. CARDIOVASCULAR: Irregular. There is faint systolic murmur. I cannot hear a rub or gallop. LUNGS: Diminished breath sounds. ABDOMEN: Soft, nontender, nondistended. EXTREMITIES: 1-2+ pretibial edema. NEUROLOGIC: There are no focal deficits. PSYCHIATRIC: The patient has appropriate mood and affect. Electrocardiogram today demonstrates atrial fibrillation with a heart rate of 68. There is a right bundle branch block, complete. LABORATORY DATA: Hemoglobin is 9.5, white blood count is 9.3, platelet count is 271,000. Sodium is 138, potassium is 5.1, chloride is 103, CO2 is 28, BUN is 34, creatinine is 2.1. Troponin I is 0.06. NT-proBNP is 1130. Chest x-ray shows no acute pulmonary process. Stable enlargement of the cardiac silhouette. IMPRESSION: 1. Acute systolic congestive heart failure. We will obtain an echocardiogram to assess her left ventricular function. She has been aggressively diuresed, but we will need to monitor renal function as she has chronic kidney disease. 2. Atrial fibrillation, persistent. She is in a rate control strategy and this is appropriate, but if her ejection fraction is reduced we may need to switch her from Cardizem to carvedilol. 3. Oral anticoagulation. Currently, she has inadequate therapy. Her CHADS-VASc score is 4 and it may not be a bad idea to trial her on a low dose of Eliquis 2.5 mg p.o. b.i.d. 4. [place] [address] CONSULTATION Name: JOE BREWSTER Room: [address] IN [place].#: [id number] Admission: 03/13/18 Attend Phys: Georgi Garcia MD Discharge: 03/16/18 Date of : 38 Report #: [id number] 5. Chronic kidney disease as noted above. We will need to monitor renal function closely on diuretic therapy. <ELECTRONICALLY SIGNED> By: Alexx Pearl MD, FACC 03/27/18 1252 1040 2044Alexx Pearl MD, FACC /nt
== END 2018-03-16 16:40 | disposition home or self-care (01) | DRG 291 ==
LOC: M.ERS 13:37 → M.TBA-ER 14:50 → M.2W 14:50
PROVIDERS: Family Medicine; ADMIT Internal Medicine
DX: I13.0 Hypertensive heart and chronic kidney disease with heart failure and stage 1 through stage 4 chronic kidney disease, or unspecified chronic kidney disease (principal); I50.33 Acute on chronic diastolic (congestive) heart failure; J96.01 Acute respiratory failure with hypoxia; E44.1 Mild protein-calorie malnutrition; N18.4 Chronic kidney disease, stage 4 (severe); N17.9 Acute kidney failure, unspecified; I48.1 Persistent atrial fibrillation; Z68.41 Body mass index [BMI] 40.0-44.9, adult; Z66 Do not resuscitate; K21.9 Gastro-esophageal reflux disease without esophagitis; G47.30 Sleep apnea, unspecified; E78.5 Hyperlipidemia, unspecified; D63.1 Anemia in chronic kidney disease; E11.22 Type 2 diabetes mellitus with diabetic chronic kidney disease; Z79.4 Long term (current) use of insulin; Z79.01 Long term (current) use of anticoagulants; Z79.899 Other long term (current) drug therapy; Z93.3 Colostomy status; Z90.49 Acquired absence of other specified parts of digestive tract; Z84.1 Family history of disorders of kidney and ureter

== ENCOUNTER 2018-05-30 01:00 | Inpatient (IN) | payer MEDICARE, MEDICAID ==
[~2018-05-30] VITALS: Ht 160 cm; Wt 102.1 kg
[~2018-05-30 01:00] MED LIST changes: +ATORVASTATIN CA40 MG PO; +COZAAR 25 MG TA25 M1 PO; +DEMADEX 2020 MG/1 TA PO; +NOVOLOG100 UNIT/1 SUBQ; +TRULICITY0.75 MG/0. SUBQ
[2018-05-30 01:05] VITALS: BP 139/53
[2018-05-30 01:50] LABS: HEMATOCRIT 31.2 % (37.0-47.0); HEMOGLOBIN 9.9 gm/dL (12.0-15.0); MCH 24.5 pg (26.0-34.0); MCHC 31.9 g/dL (28.0-37.0); MPV 7.8 fl. (7.2-11.1); NUCLEATED RBCS 0 /100WBC; PLATELET COUNT* 320 thou/uL (150-400); RBC 4.05 mil/uL (4.20-5.00); RDW-CV 17.3 % (10.5-14.5); WBC 14.4 thou/uL (4.0-11.0)
[2018-05-30 02:04] LABS: ALBUMIN 3.3 g/dL (3.4-5.0); CALCIUM 8.5 mg/dL (8.5-10.1); POTASSIUM 4.7 mmol/L (3.5-5.1); TOTAL BILIRUBIN 0.3 mg/dL (<0.1-1.0); TOTAL PROTEIN 6.9 g/dL (6.4-8.2)
[2018-05-30 02:08] LABS: ABSOLUTE LYMPHOCYTES 1.4 thou/uL (0.8-5.3); ABSOLUTE MONOCYTES 0.7 thou/uL (0.0-1.2); ABSOLUTE NEUTROPHILS 12.2 thou/uL (1.6-8.1); ANISOCYTOSIS 1+; OVALOCYTES 2+; PLATELET ESTIMATE ADEQUATE; POLYCHROMASIA Occasional
[2018-05-30 02:16] LABS: BE -1.3 mmol/L (-2 to +3); HCO3 23.1 mmol/L (22.0-26.0); PCO2 37.4 mmHg (35.0-45.0); PO2 67.7 mmHg (75.0-100.0); pH 7.408 (7.340-7.450)
[2018-05-30 02:32] LABS: INFLUENZA A ANTIGEN None Detected (None Detect); INFLUENZA B ANTIGEN None Detected (None Detect)
[2018-05-30 02:39] LABS: INR 1.1; PROTIME 11.3 Seconds (9.20-11.50)
[2018-05-30 03:22] VITALS: BP 140/52
[2018-05-30] MEDS ORDERED: DEMADEX20 MG PO (04:05)
[2018-05-30 08:00] VITALS: BP 119/56
[2018-05-30 08:43] LABS: URINE BILIRUBIN NEGATIVE (Negative); URINE BLOOD NEGATIVE (Negative); URINE CLARITY SL CLOUDY; URINE COLOR YELLOW; URINE GLUCOSE-RANDOM NEGATIVE (Negative); URINE KETONES NEGATIVE (Negative); URINE LEUKOCYTES-REFLEX TRACE (Negative); URINE NITRITE-REFLEX NEGATIVE (Negative); URINE PROTEIN NEGATIVE (Negative); URINE UROBILINOGEN 0.2 E.U./dl (0.2-1.0)
[2018-05-30 08:54] LABS: SQUAMOUS 4-10 Moderate /LPF (0-3)
[2018-05-30 08:57] LABS: MUCUS None Seen strn/LPF (None Seen); URINE RBC 0-2 Rare /HPF (0-2); URINE WBC-REFLEX 0-5 Rare /HPF (0-5)
[2018-05-30 08:58] LABS: HYALINE CASTS >10 Many /LPF (None Seen)
[2018-05-30 09:01] LABS: CRYSTALS None Seen /LPF (None Seen)
[2018-05-30 12:21] VITALS: BP 124/56
--- NOTE | 2018-05-30 12:37 | EKG ---
[place] [address] ELECTROCARDIOGRAM REPORT Name: JOE BREWSTER Room: [address] ADM IN .R.#: [id number] Admission: 05/30/18 Attend Phys: [place] Ma Discharge: Date of : 38 Report #: [id number] THIS REPORT FOR: //name// [facility] ED Test Date: 2018-05-30 Test Time: 02:14:27 Pat Name: JOE BREWSTER Department: Room: [facility] Gender: F Rn Post Partum: Nagi JANG : 1940 Requested By: Giselle Rosas Order Number: [id number] MD: Alexx Pearl Measurements Intervals [place] Rate: 89 P: [place]: QRS: 55 QRSD: 144 T: 8 QT: 386 QTc: 470 Interpretive Statements Atrial fibrillation Right bundle branch block Compared to ECG 03/13/2018 13:49:06 No significant changes Electronically Signed On 05-30-2018 12:36:53 CDT by Alexx Pearl [email or web address] <ELECTRONICALLY SIGNED> By: Alexx Pearl MD, FACC 05/30/18 1236 0214 0214 Alxex Pearl MD, [facility] /EPI
[2018-05-30 16:04] VITALS: BP 126/63
[2018-05-30 20:00] VITALS: BP 104/47
[2018-05-31] VITALS: BP 124/89
[2018-05-31 04:00] VITALS: BP 104/32
[2018-05-31 04:45] LABS: HEMATOCRIT 26.9 % (37.0-47.0); HEMOGLOBIN 8.8 gm/dL (12.0-15.0); MCH 25.1 pg (26.0-34.0); MCHC 32.8 g/dL (28.0-37.0); MCV 76.6 fL (80.0-100.0); MPV 7.4 fl. (7.2-11.1); RBC 3.52 mil/uL (4.20-5.00); RDW-CV 17.6 % (10.5-14.5); WBC 10.9 thou/uL (4.0-11.0)
[2018-05-31 05:10] LABS: ALBUMIN 2.9 g/dL (3.4-5.0); CALCIUM 8.4 mg/dL (8.5-10.1); CREATININE 2.2 mg/dL (0.6-1.3); MAGNESIUM 2.1 mg/dL (1.8-2.4); TOTAL BILIRUBIN 0.3 mg/dL (<0.1-1.0); TOTAL PROTEIN 5.8 g/dL (6.4-8.2)
[2018-05-31 08:00] VITALS: BP 124/70
[2018-05-31 12:32] VITALS: BP 108/55
[2018-05-31 16:31] VITALS: BP 126/57
[2018-05-31 20:00] VITALS: BP 115/57
[2018-06-01] VITALS: BP 102/36
[2018-06-01 04:00] VITALS: BP 126/64
[2018-06-01 05:23] LABS: ABSOLUTE BASOPHILS 0.1 thou/uL (0.0-0.2); ABSOLUTE EOSINOPHILS 0.6 thou/uL (0.0-0.7); ABSOLUTE LYMPHOCYTES 1.8 thou/uL (0.8-5.3); ABSOLUTE MONOCYTES 1.1 thou/uL (0.0-1.2); ABSOLUTE NEUTROPHILS 6.4 thou/uL (1.6-8.1); BASOPHILS 1.4 %; EOSINOPHILS 5.6 %; HEMATOCRIT 26.9 % (37.0-47.0); HEMOGLOBIN 8.9 gm/dL (12.0-15.0); LYMPHOCYTES 18.2 %; MCH 25.1 pg (26.0-34.0); MCHC 32.9 g/dL (28.0-37.0); MCV 76.3 fL (80.0-100.0); MONOCYTES 11.3 %; MPV 7.7 fl. (7.2-11.1); NUCLEATED RBCS 0 /100WBC; PLATELET COUNT* 262 thou/uL (150-400); POLYS 63.5 %; RBC 3.52 mil/uL (4.20-5.00); RDW-CV 17.5 % (10.5-14.5); WBC 10.1 thou/uL (4.0-11.0)
[2018-06-01 08:00] VITALS: BP 124/66
[2018-06-01 12:00] VITALS: BP 131/52
[2018-06-01 16:00] VITALS: BP 128/54
[2018-06-02] VITALS: BP 117/57
[2018-06-02 04:00] VITALS: BP 126/52
[2018-06-02 04:46] LABS: HEMATOCRIT 29.2 % (37.0-47.0); HEMOGLOBIN 9.6 gm/dL (12.0-15.0); MCHC 32.9 g/dL (28.0-37.0); MCV 76.1 fL (80.0-100.0); MPV 7.9 fl. (7.2-11.1); RBC 3.84 mil/uL (4.20-5.00); WBC 11.2 thou/uL (4.0-11.0)
[2018-06-02 05:28] LABS: CALCIUM 8.2 mg/dL (8.5-10.1); CREATININE 2.2 mg/dL (0.6-1.3); MAGNESIUM 2.4 mg/dL (1.8-2.4); POTASSIUM 4.9 mmol/L (3.5-5.1)
[2018-06-02 08:00] VITALS: BP 125/58
[2018-06-02 12:02] VITALS: BP 132/57
[2018-06-02 16:00] VITALS: BP 117/46
[2018-06-02 20:22] VITALS: BP 157/72
[2018-06-03] VITALS: BP 149/53
[2018-06-03 04:00] VITALS: BP 112/56
[2018-06-03 08:10] VITALS: BP 126/46
[2018-06-03] MEDS ORDERED: PREDNISONE 10 M10 M1 PO (09:03)
[2018-06-03] MEDS ORDERED: AZITHROMYCIN 2250 MG PO (09:03)
[2018-06-03] MEDS ORDERED: MUCINEX600 MG PO (09:03)
[2018-06-03] MEDS ORDERED: CEFDINIR300 MG PO (09:03)
[2018-06-03 12:42] VITALS: BP 126/46
[2018-06-03 13:15] VITALS: BP 146/68
== END 2018-06-03 14:03 | disposition home or self-care (01) | DRG 291 ==
LOC: M.ERS 01:00 → M.TBA-ER 02:35 → M.2W 02:35
PROVIDERS: Internal Medicine; Personal Emergency Response Attendant; ADMIT Internal Medicine
DX: I11.0 Hypertensive heart disease with heart failure (principal); J15.9 Unspecified bacterial pneumonia; R65.11 Systemic inflammatory response syndrome (SIRS) of non-infectious origin with acute organ dysfunction; J96.00 Acute respiratory failure, unspecified whether with hypoxia or hypercapnia; I50.33 Acute on chronic diastolic (congestive) heart failure; E11.65 Type 2 diabetes mellitus with hyperglycemia; I48.2 Chronic atrial fibrillation; D64.9 Anemia, unspecified; Z79.899 Other long term (current) drug therapy; Z93.3 Colostomy status

== ENCOUNTER 2018-08-02 23:49 | Emergency (ER) | payer MEDICARE, MEDICAID ==
[~2018-08-02] VITALS: Ht 160 cm; Wt 104.1 kg
[~2018-08-02 23:49] MED LIST changes: +AZITHROMYCIN 2250 MG PO; +CEFDINIR300 MG PO; +DEMADEX20 MG PO; +MUCINEX600 MG PO; +PREDNISONE 10 M10 M1 PO
[2018-08-03] MEDS ORDERED: ASPIR 8181 MG PO
[2018-08-03] MEDS ORDERED: ANUSOL-HC25 MG RECTAL (00:01)
[2018-08-03 00:21] LABS: ABSOLUTE BASOPHILS 0.1 thou/uL (0.0-0.2); ABSOLUTE EOSINOPHILS 0.3 thou/uL (0.0-0.7); ABSOLUTE LYMPHOCYTES 2.3 thou/uL (0.8-5.3); ABSOLUTE MONOCYTES 0.9 thou/uL (0.0-1.2); ABSOLUTE NEUTROPHILS 6.4 thou/uL (1.6-8.1); BASOPHILS 0.7 %; EOSINOPHILS 2.8 %; HEMOGLOBIN 9.6 gm/dL (12.0-15.0); MCH 24.7 pg (26.0-34.0); MCHC 32.1 g/dL (28.0-37.0); MCV 77.1 fL (80.0-100.0); MONOCYTES 8.9 %; MPV 7.3 fl. (7.2-11.1); NUCLEATED RBCS 0 /100WBC; PLATELET COUNT* 267 thou/uL (150-400); POLYS 64.6 %; RDW-CV 17.1 % (10.5-14.5); WBC 9.9 thou/uL (4.0-11.0)
[2018-08-03 00:27] LABS: CREATININE 1.9 mg/dL (0.6-1.3); POTASSIUM 4.1 mmol/L (3.5-5.1)
[2018-08-03 00:31] LABS: ALBUMIN 3.3 g/dL (3.4-5.0); TOTAL BILIRUBIN 0.4 mg/dL (<0.1-1.0); TOTAL PROTEIN 6.8 g/dL (6.4-8.2)
[2018-08-03 00:38] LABS: URINE BILIRUBIN NEGATIVE (Negative); URINE BLOOD NEGATIVE (Negative); URINE CLARITY CLEAR; URINE COLOR YELLOW; URINE GLUCOSE-RANDOM NEGATIVE (Negative); URINE KETONES NEGATIVE (Negative); URINE LEUKOCYTES-REFLEX TRACE (Negative); URINE NITRITE-REFLEX NEGATIVE (Negative); URINE PROTEIN NEGATIVE (Negative); URINE UROBILINOGEN 0.2 E.U./dl (0.2-1.0)
[2018-08-03] MEDS ORDERED: PROCTOCREAM-HC30 GM RECTAL (00:53)
[2018-08-03 00:56] LABS: BACTERIA-REFLEX >30 Many /HPF (None Seen); CRYSTALS None Seen /LPF (None Seen); HYALINE CASTS 0-3 Few /LPF (None Seen); MUCUS 4-6 Moderate strn/LPF (None Seen); SQUAMOUS 4-10 Moderate /LPF (0-3); TRANSITIONAL EPITHEL CELL 0-3 Few /LPF (None Seen); URINE RBC 3-10 Few /HPF (0-2); URINE WBC-REFLEX 6-15 Few /HPF (0-5); WBC CLUMPS Few (None Seen)
[2018-08-03 01:28] VITALS: BP 114/48
== END 2018-08-03 01:28 | disposition home or self-care (01) ==
LOC: M.ERS 23:49
PROVIDERS: Personal Emergency Response Attendant
DX: K64.4 Residual hemorrhoidal skin tags (principal); E11.9 Type 2 diabetes mellitus without complications; I11.0 Hypertensive heart disease with heart failure; I50.9 Heart failure, unspecified; I48.91 Unspecified atrial fibrillation; Z79.4 Long term (current) use of insulin

== ENCOUNTER 2019-01-23 22:25 | Inpatient (IN) | payer OTHER, MEDICAID ==
[~2019-01-23] VITALS: Ht 160 cm; Wt 98.0 kg
--- NOTE | ~2019-01-23 | OP ---
[address] [address] OPERATIVE REPORT Name: JOE BREWSTER Room: [address] IN .R#: [id number] Admission: 01/23/19 Attend Phys: Wyatt Rey MD Discharge: Date of : 38 Report #: [id number] THIS REPORT FOR: //name// CC: Wyatt Pino PREOPERATIVE DIAGNOSIS: Right distal femur fracture, comminuted. POSTOPERATIVE DIAGNOSIS: Right distal femur fracture, comminuted. PROCEDURES: 1. Open reduction and internal fixation of right comminuted distal femur fracture with intramedullary nail. 2. Physician directed fluoroscopy. SURGEON: Georgi Sena DO. ARMED SECURITY PROFESSIONAL: Zia Hope DO. SECOND METALLOGRAPHIC TECHNICIAN: Georgi Blake DO. ANESTHESIA: General. ANTIBIOTICS: Ancef IV preoperatively. FLUIDS: 320 mL normal saline. ESTIMATED BLOOD LOSS: 250 mL. URINE OUTPUT: 250 mL. COMPLICATIONS: None. SPECIMENS: None. DRAINS: None. CONDITION: The patient is stable to PACU. IMPLANTS: Synthes retrograde femoral nail size 13 x 340 mm with 2 proximal interlocking screws, 1 distal interlocking static screw and condylar bolt locked with set screw. INDICATIONS FOR PROCEDURE: The patient is a 78-year-old female admitted to [facility] with distal femur fracture. Consultation requested by Dr. Hope who originally saw the patient and asked that I take over the case surgically due to complexity of the case. He had a long conversation with the [address] [address] OPERATIVE REPORT Name: JOE BREWSTER Room: [address] IN [facility]#: [id number] Admission: 01/23/19 Attend Phys: Wyatt Rey MD Discharge: Date of : 38 Report #: [id number] family talking about the diagnosis, different treatment options, the plan for surgery and risks and complications. He and I discussed this case at length over the phone and he discussed with the family that I would be coming in for the procedure due to the complexity. I was able to meet the family prior to going into the surgery, the risks and complications were acknowledged and accepted by the patient. We obtained verbal and written consent to proceed. DESCRIPTION OF PROCEDURE: We had marked the right lower extremity in the presence of the operative team members and everyone agreed this was correct. She was taken back to the operative suite where a briefing was performed indicating correct patient, procedure, site, antibiotics and implants were present and sterile. All team members agreed. General anesthetic was administered. She was transferred to the operative table in supine position, well-padded and secured appropriately. Right lower extremity was sterilely prepped and draped in standard fashion. Timeout was performed indicating correct patient, procedure, site, antibiotics and then implants were present and sterile. All team members agreed. We marked out incisions. She had a patellectomy back in the 1960s, decision was made to make a larger incision with a larger longitudinal-type incision, so that we could identify where her tendon was and protect it appropriately with that history of patellectomy. We made that incision in line, scalpel through skin, full thickness flaps, visualized the tendon. We were able to come through this and also protect and come on the medial aspect of the patellar tendon aspect of that patellectomy. We were directly visualizing our fracture site. We were able actually to feel our fracture and gain a direct reduction with a [id number] clamp. C-arm confirmed on multiplanar imaging that we had restored length, alignment and rotation on multiple planes on multiplanar imaging. At that point in time, we advanced our guidewire on multiplanar imaging, reamed over that guidewire and placed ball-tipped guidewire not to just past the lesser and also trying to plan for that if she was to develop the hip fracture, we would be able to potentially get fixation, did not want to seat the nail too far up to prevent that. We measured for a 340 mm. Preoperatively, we had measured the canal at 14 mm. We therefore reamed to 14 mm. This had adequate chatter. This was for a final 13 x 340 mm nail, which was inserted over the guidewire uneventfully. We had reamed our reduction and held appropriately so the nail followed this and our reduction was excellent confirmed on multiplanar imaging with the nail in place. We did shorten her somewhat due to the comminution as we wanted bone ends touching. Confirmed on multiplanar imaging that the reduction was appropriate and we had direct visualization of the end of the femur showing that the nail was appropriately seated as we could see it due to our larger approach. At that point in time, we then made an incision for our guides, drilled in place the first static screw in the distal segment. We then at that point in time, placed our guide for the condylar bolt, advanced the guidewire making sure that we stopped short of the far cortex, measured half the near cortex and placed over our guidewire, the condylar bolt. We watched this going under C-arm and this went in uneventfully not propagating any fracture. At this point in time, all [address] [address] OPERATIVE REPORT Name: JOE BREWSTER Room: [address] IN [facility]#: [id number] Admission: 01/23/19 Attend Phys: Wyatt Rey MD Discharge: Date of : 38 Report #: [id number] distal fixation was in place. We placed our set screw, which locked the condylar bolt in place, removing the external aiming guide. We removed the bump from under her hip that was placed prior to checking our rotation and she was sitting in an appropriate amount of external rotation as judged by preoperative films and also checked by judgment of her lesser trochanter per images saved prior to surgery comparing to the contralateral extremity and our rotation was appropriate. We then used a perfect [place] technique, making an incision proximally and carefully spreading down to bone. Blunt dissection of the entire time and careful to avoid any structures, drilled, measured and placed 2 appropriately sized interlocking screws proximally. At this point in time, all hardware was in place. Final C-arm images showed excellent placement of all hardware for appropriate fracture reduction. We restored length, alignment and rotation. We did save the images and dismissed C-arm, thoroughly irrigated all incision sites with normal saline. The proximal incision was closed with 2-0 Monocryl buried deep and belkis for skin. Distally, we closed the percutaneous incisions for the screw placements with 2-0 Monocryl buried deep and belkis for skin. The main incision was again thoroughly irrigated with normal saline and closed with 0 Vicryl tack sutures and oversewn with #1 Stratafix, 2-0 Monocryl buried deep and belkis for skin. Debriefing was performed where we confirmed the procedure, blood loss and then all counts were correct and final. All team members agreed. Sterile silver impregnated dressings were applied. Her limb was neurovascularly intact. Her compartments were soft and compressible. She was extubated and transferred off the operating table, taken to PACU, stable. POSTOPERATIVE COURSE AND EVALUATION: She was resting in PACU, stable vital signs, pain controlled, neurovascularly intact in that extremity. PACU films showed stable internal fixation and fracture reduction and excellent placement of hardware, no change from final intraoperative images. DVT prophylaxis will be pharmacological and mechanical. She has significant bleeding history with any type of advanced prophylaxis. We discussed this with the family and they know that she is at risk for DVT, PE and potentially even , but we will be going with aspirin as they said anything stronger than that is what the bleeding events for her. We will also get help from our Medicine team in regards to this and we will make sure that she is mechanically prophylaxed as well. She will be 25% weightbearing. PT, OT. We will have case management help with discharge planning, Medicine for medical management. She has insulin-dependent diabetes. We have explained to the family it is critical for control on this. Spoke with her family members per her wishes. Addressed questions they had to their stated satisfaction. They are very thankful for our time and efforts. By: [id number] Sena, /nt
[~2019-01-23 22:25] MED LIST changes: +ANUSOL-HC25 MG RECTAL; +PROCTOCREAM-HC30 GM RECTAL
[2019-01-23 22:27] VITALS: BP 152/63
[2019-01-23 23:23] LABS: HEMATOCRIT 32.8 % (37.0-47.0); HEMOGLOBIN 10.5 gm/dL (12.0-15.0); MCHC 32.1 g/dL (28.0-37.0); MCV 80.9 fL (80.0-100.0); MPV 7.7 fl. (7.2-11.1); NUCLEATED RBCS 0 /100WBC; PLATELET COUNT* 242 thou/uL (150-400); RBC 4.05 mil/uL (4.20-5.00); RDW-CV 18.8 % (10.5-14.5); WBC 12.1 thou/uL (4.0-11.0)
[2019-01-23 23:35] LABS: APTT 23.7 Seconds (25.0-31.3); INR 1.1; PROTIME 11.2 Seconds (9.20-11.50)
[2019-01-23 23:48] LABS: ANION GAP 15 mmol/L (7-16); BUN 42 mg/dL (7-18); CALCIUM 8.5 mg/dL (8.5-10.1); CHLORIDE 99 mmol/L (98-107); CO2 25 mmol/L (21-32); CREATININE 2.4 mg/dL (0.6-1.3); GLUCOSE 417 mg/dL (70-99); POTASSIUM 4.9 mmol/L (3.5-5.1); SODIUM 139 mmol/L (136-145)
[2019-01-23 23:53] LABS: URINE BILIRUBIN NEGATIVE (Negative); URINE BLOOD TRACE (Negative); URINE CLARITY CLEAR; URINE COLOR YELLOW; URINE GLUCOSE-RANDOM 2+ (Negative); URINE KETONES NEGATIVE (Negative); URINE LEUKOCYTES-REFLEX NEGATIVE (Negative); URINE NITRITE-REFLEX NEGATIVE (Negative); URINE PROTEIN NEGATIVE (Negative); URINE UROBILINOGEN 0.2 E.U./dl (0.2-1.0)
[2019-01-23 23:58] LABS: ALBUMIN 3.4 g/dL (3.4-5.0); ALKALINE PHOSPHATASE 98 U/L (46-116); NT-PRO BRAIN NAT PEPTIDE 2662 pg/mL (<300); SGOT 17 U/L (15-37); SGPT 26 U/L (30-65); TOTAL BILIRUBIN 0.3 mg/dL (<0.1-1.0); TOTAL PROTEIN 6.9 g/dL (6.4-8.2); TROPONIN-I LEVEL <0.06 ng/mL (<0.06)
[2019-01-24 00:27] LABS: ABSOLUTE BASOPHILS 0.1 thou/uL (0.0-0.2); ABSOLUTE MONOCYTES 0.4 thou/uL (0.0-1.2); ABSOLUTE NEUTROPHILS 11.6 thou/uL (1.6-8.1); ANISOCYTOSIS 1+; PLATELET ESTIMATE ADEQUATE; TOXIC GRANULATION 1+
[2019-01-24 00:50] VITALS: BP 112/50
[2019-01-24 01:00] VITALS: BP 112/50
[2019-01-24] MEDS ORDERED: NOVOLOG100 UNIT/1 SUBQ (02:29)
--- NOTE | 2019-01-24 06:21 | NUR ---
Admit at 0032. She is alert and oriented x 4. Rt femur fracture and rt leg is externally rotated and shortened. It was very painful for her to move from ED cart to the bed. We did leave the transfer sheet under the patient b/c it is very difficult and painful for her to move. She is wearing O2 at 2L n/c,she does wear at home at night. She's had pain med x 1 and had nausea x 1. She's had nothing by mouth since midnight. Ortho consult called to answering service at 0140. She has slept intermittenly.
[2019-01-24 08:00] VITALS: BP 123/66
[2019-01-24 11:29] VITALS: BP 123/66
--- NOTE | 2019-01-24 14:07 | EKG ---
[place] [address] ELECTROCARDIOGRAM REPORT Name: JOE BREWSTER Room: [address] ADM IN [facility]#: [id number] Admission: 01/23/19 Attend Phys: Wyatt Rey MD Discharge: Date of : 39 Report #: [id number] THIS REPORT FOR: //name// [facility] ED Test Date: 2019-01-23 Test Time: 23:35:32 Pat Name: JOE BREWSTER Department: Room: [facility] Gender: F Flea Market Seller: : 1940 Requested By: Herrera Casiano Order Number: [id number] MD: Eliseo Kang Measurements Intervals [place] Rate: 88 P: [place]: QRS: 56 QRSD: 144 T: 38 QT: 409 QTc: 495 Interpretive Statements Atrial fibrillation Right bundle branch block Baseline wander in lead(s) V2,V6 Compared to ECG 05/30/2018 02:14:27 No significant changes Electronically Signed On 01-24-2019 14:07:36 CDT by Eliseo Kang [email or web address] <ELECTRONICALLY SIGNED> By: Eliseo Kang MD, [facility] 01/24/19 1407 [id number] [id number] Eliseo Kang MD, [facility] /EPI
--- NOTE | 2019-01-24 15:35 | NUR ---
PT.IN SURGERY ALL AFTERNOON. CM WILL ASSESS AT A LATER TIME.
--- NOTE | 2019-01-24 17:24 | NUR ---
PT RETURNED FROM PACU AT THIS TIME. DRESSING PRESENT TO RIGHT UPPER LEG. PT ON 4L NC AND CAPNO. FAMILY PRESENT AT BEDSIDE. WILL CONTINUE TO MONITOR.
[2019-01-24 21:00] VITALS: BP 106/56
[2019-01-24 23:36] VITALS: BP 101/50
[2019-01-25 04:00] VITALS: BP 108/70
[2019-01-25 04:26] LABS: CALCIUM 8.1 mg/dL (8.5-10.1); CREATININE 2.2 mg/dL (0.6-1.3)
[2019-01-25 04:32] LABS: ABSOLUTE LYMPHOCYTES 1.6 thou/uL (0.8-5.3); ABSOLUTE MONOCYTES 1.6 thou/uL (0.0-1.2); ABSOLUTE NEUTROPHILS 12.7 thou/uL (1.6-8.1); BASOPHILS 0.3 %; HEMATOCRIT 22.3 % (37.0-47.0); LYMPHOCYTES 9.9 %; MCH 26.9 pg (26.0-34.0); MCHC 33.3 g/dL (28.0-37.0); MCV 80.7 fL (80.0-100.0); MONOCYTES 10.3 %; MPV 8.2 fl. (7.2-11.1); NUCLEATED RBCS 0 /100WBC; PLATELET COUNT* 172 thou/uL (150-400); POLYS 79.5 %; RBC 2.77 mil/uL (4.20-5.00); RDW-CV 18.5 % (10.5-14.5)
[2019-01-25 04:35] LABS: HEMOGLOBIN 7.4 gm/dL (12.0-15.0)
[2019-01-25 04:46] LABS: POTASSIUM 6.1 mmol/L (3.5-5.1)
[2019-01-25 06:26] LABS: ALBUMIN 2.7 g/dL (3.4-5.0); CALCIUM 8.4 mg/dL (8.5-10.1); CREATININE 2.4 mg/dL (0.6-1.3); PHOSPHORUS* 5.1 mg/dL (2.5-4.9)
[2019-01-25 06:40] LABS: POTASSIUM 6.1 mmol/L (3.5-5.1)
--- NOTE | 2019-01-25 06:57 | NUR ---
PT REMAINED ALERT AND ORIENTED. VITALS STABLE WITH 5L O2 BY NC. MEDS GIVEN ORDERED. BG 301, 9 UNITS OF INSULIN GIVEN. PAIN CONTROLLED WITH SCHEDULED TRAMADOL. DRESSING TO RIGH KNEE/THIGH CLEAN AND DRY. KAYEXALATE GIVEN FOR HYPERKALEMIA. FERRARO, SCD, COLOSTOMY BAG IN PLACE. HOURLY ROUNDING COMPLETED. WILL CONTINUE TO MONITOR.
[2019-01-25 07:30] VITALS: BP 99/53
--- NOTE | 2019-01-25 10:41 | NUR ---
INITIAL ASSESSMENT: Pt evaluated for d/c planning needs. Reviewed chart and spoke with nurse and pt. Pt is alert and oriented. Pt lives at home with daughter, S-I-L and 6 other family members. Pt said that there are 4 generations living in the house. She has a great-grandchild who is 6 months old and pt is the oldest. Pt said her youngest daughter is her paid caregiver through [employer] ([employer]). Pt has walker at home, and oxygen through [facility]. Pt said she has BSC and shower bench. Pt plans on returning home on d/c from hospital and is not interested in going to SNF since her daughter is paid caregiver. Will await input from PT and OT re: recommendations.
[2019-01-25 11:57] VITALS: BP 125/70; BP 127/71; BP 130/73; BP 132/66
[2019-01-25 12:28] LABS: CALCIUM 8.1 mg/dL (8.5-10.1); CREATININE 2.5 mg/dL (0.6-1.3)
[2019-01-25 12:33] LABS: POTASSIUM 4.8 mmol/L (3.5-5.1)
[2019-01-25 16:00] VITALS: BP 125/70
[2019-01-25 16:28] VITALS: BP 120/78
--- NOTE | 2019-01-25 16:57 | NUR ---
ASSDUMED CARE OF PATIENT AT APPROX 0730. ALERT AND ORIENTED X4. ASSESSMENT COMPLETED AND CHARTED. VSS ON 4 LITERS, TITRATED DOWN TO 2 TODAY AND STILL STABLE. PATIENTS COLOSTOMY WAS LEAKING UPON MORNING ASSESSMENT, HAD TO CHANGE THE COMPLETE 2 PIECE APPLIANXCE AND GIVE THE PATINET A BED BATH TO CLEAN HER UP. CHANGED DEBORAH WRAP DRESSING COVERING SURGICAL DRESSINGS BECAUSE IT BECAME SOILED WITH STOOL. PATIENT UP TO THE EDGE OF THE BED AND STOOD UP WITH MYSELF AND THERAPY TODAY, SHE FELT TOO LIGHT HEADED TO MOVE TO THE CHAIR. ONE UNIT BLOOD TRANSFUSED WITH NO REACTION. FALL PRECAUTIONS IN PLACE. CALL LIGHT WITHIN REACH. HOURLY ROUNDS COMPLETED. WILL CONTINUE TO MONITOR.
[2019-01-25 19:40] VITALS: BP 117/61
[2019-01-26 04:21] LABS: ABSOLUTE BASOPHILS 0.1 thou/uL (0.0-0.2); ABSOLUTE EOSINOPHILS 0.1 thou/uL (0.0-0.7); ABSOLUTE LYMPHOCYTES 1.3 thou/uL (0.8-5.3); ABSOLUTE MONOCYTES 1.2 thou/uL (0.0-1.2); ABSOLUTE NEUTROPHILS 9.1 thou/uL (1.6-8.1); BASOPHILS 0.5 %; EOSINOPHILS 0.9 %; HEMATOCRIT 23.2 % (37.0-47.0); HEMOGLOBIN 7.8 gm/dL (12.0-15.0); LYMPHOCYTES 11.1 %; MCH 27.3 pg (26.0-34.0); MCHC 33.6 g/dL (28.0-37.0); MONOCYTES 10.5 %; MPV 8.1 fl. (7.2-11.1); NUCLEATED RBCS 0 /100WBC; PLATELET COUNT* 141 thou/uL (150-400); RBC 2.87 mil/uL (4.20-5.00); RDW-CV 17.8 % (10.5-14.5); WBC 11.8 thou/uL (4.0-11.0)
[2019-01-26 04:32] LABS: CALCIUM 6.7 mg/dL (8.5-10.1); POTASSIUM 4.2 mmol/L (3.5-5.1)
--- NOTE | 2019-01-26 04:34 | NUR ---
PT REMAINED ALERT AND ORIENTED. MEDS GIVEN ORDERED. PT ON 2L OF O2 BY NC. FERRARO, COLOSTOMY BAG IN PLACE. DRESSING TO RT KNEE/THIGH CLEAN AND DRY. SCDS IN PLACE. PT DENIED PAIN. HOURLY ROUNDING COMPLETED. WILL CONTINUE TO MONITOR.
[2019-01-26 07:45] VITALS: BP 110/56
[2019-01-26 15:34] VITALS: BP 113/68
--- NOTE | 2019-01-26 16:39 | NUR ---
PT A&Ox4. VITALS STABLE. IV PATENT. FERRARO DISCONTINUED. UP WITH 1 USING GAIT BELT AND WALKER. DRESSING IS CLEAN, DRY AND INTACT. DENIED PAIN MEDS. DENIED NAUSEA. COLOSTOMY PATENT. ON 2LO2. FALL PRECAUTIONS IN PLACE. CALL LIGHT WITHIN REACH. WILL CONTINUE TO MONITOR.
[2019-01-26 21:30] VITALS: BP 106/46
--- NOTE | 2019-01-27 04:20 | NUR ---
PT ALERT AND ORIENTED. MEDS GIVEN ORDERED EXCEPT PT REFUSED INSULIN. PT DENIED PAIN. NO NAUSEA OR VOMITING. COLOSTOMY BAG IN PLACE, DRESSING TO RT THIGH CLEAN AND DRY. HOURLY ROUNDING COMPLETED. WILL CONTINUE TO MONITOR.
[2019-01-27 08:00] VITALS: BP 123/65
[2019-01-27 10:44] LABS: ABSOLUTE BASOPHILS 0.1 thou/uL (0.0-0.2); ABSOLUTE EOSINOPHILS 0.2 thou/uL (0.0-0.7); ABSOLUTE LYMPHOCYTES 1.2 thou/uL (0.8-5.3); ABSOLUTE MONOCYTES 0.9 thou/uL (0.0-1.2); ABSOLUTE NEUTROPHILS 9.5 thou/uL (1.6-8.1); BASOPHILS 0.6 %; EOSINOPHILS 1.6 %; HEMATOCRIT 23.9 % (37.0-47.0); HEMOGLOBIN 7.9 gm/dL (12.0-15.0); LYMPHOCYTES 9.9 %; MCH 27.2 pg (26.0-34.0); MCHC 33.2 g/dL (28.0-37.0); MCV 81.9 fL (80.0-100.0); MONOCYTES 7.7 %; MPV 7.8 fl. (7.2-11.1); NUCLEATED RBCS 0 /100WBC; PLATELET COUNT* 171 thou/uL (150-400); POLYS 80.2 %; RBC 2.91 mil/uL (4.20-5.00); RDW-CV 17.6 % (10.5-14.5); WBC 11.8 thou/uL (4.0-11.0)
[2019-01-27 11:01] LABS: ALBUMIN 2.3 g/dL (3.4-5.0); CALCIUM 7.5 mg/dL (8.5-10.1); CREATININE 1.9 mg/dL (0.6-1.3); POTASSIUM 3.8 mmol/L (3.5-5.1); TOTAL BILIRUBIN 0.4 mg/dL (<0.1-1.0); TOTAL PROTEIN 5.5 g/dL (6.4-8.2)
--- NOTE | 2019-01-27 17:09 | NUR ---
PT A&Ox4. VITALS STABLE. PAIN CONTROLLED WITH OXY IR. UP WITH 3 MAX ASSIST TO CHAIR. ON 1LO2. DRESSING IS CLEAN, DRY AND INTACT. COLOSTOMY AND IV PATENT. FALL PRECAUTIONS IN PLACE. CALL LIGHT WITHIN REACH. WILL CONTINUE TO MONITOR.
[2019-01-27 17:28] VITALS: BP 127/61
[2019-01-27 21:00] VITALS: BP 110/45
--- NOTE | 2019-01-28 04:42 | NUR ---
PATIENT HAS RESTED WELL DURING THE NIGHT. VSS ON 2L 02 VIAS NASAL CANNULA. NO C/O PAIN. MEDICATIONS GIVEN ORDERED AND CHARTED. ASSESSMENT CHARTED. COLOSTOMY INTACT WITH SMALL AMOUNT OF STOOL. PATIENT TURNS SELF IN BED. IV IN LEFT HAND-SL. PATIENT INSTRUCTED TO USE CALL LIGHT WHEN NEEDING ASSISTANCE. HOURLY ROUNDS MADE. WILL CONTINUE WITH PLAN OF CARE AND NURSING TO MONITOR.
--- NOTE | 2019-01-28 04:48 | NUR ---
DRESSING TO RIGHT LEG IS C/D/I. NURSING TO CONTINUE MONITORING.
[2019-01-28 08:12] VITALS: BP 123/70
[2019-01-28] MEDS ORDERED: OXYCODONE HCL 55 MG PO (10:25)
[2019-01-28] MEDS ORDERED: TRAMADOL 50 MG50 MG PO (10:26)
[2019-01-28] MEDS ORDERED: AUGMENTIN 875-1 EACH PO (10:35)
[2019-01-28] MEDS ORDERED: ENOXAPARIN30 MG/0.1 SUBQ (10:41)
[2019-01-28 10:44] VITALS: BP 123/70
--- NOTE | 2019-01-28 15:04 | NUR ---
DISCUSSED WITH PT. AND THEN CALLED DAUGHTER,FRIDA TO DISCUSS DISCHARGE PLANNING. PT.AGREEABLE TO ME CALLING FRIDA. EXPLAINED TO BOTH THAT SHE IS READY MEDICALLY FOR DISCHARGE BUT NEEDS THERAPYS. REHAB DR, SAID TODAY THAT PT.NOT READY FOR INPT.REHAB DUE TO FATIGUE AND SLOW PROGRESSION. HE RECOMMENDED SNF. FRIDA, SAID HER DAUGHTER IN LAW WORKS AT [employer], SO SHE WOULD LIKE A REFERRAL MADE THERE. SPOKE WITH MARY/[facility]ER[facility] LUCAS AND FAXED HER A REFERRAL FOR SNF. FRIDA ALSO ASKING ABOUT COMPANIES THAT BUILD [facility] FOR HOMES. WILL GATHER INFORMATION AND CALL HER BACK.
[2019-01-28 16:30] VITALS: BP 133/55
--- NOTE | 2019-01-28 17:05 | NUR ---
PT SOMEWHAT PROGRESSING TOWARDS GOALS THIS SHIFT. CONSULTED WITH REHAB WHO DID NOT FIND PT TO BE A CANDIDATE FOR INPATIENT REHAB. CASE MANAGEMENT WORKING ON PLACEMENT TO NEARBY SNF FACILITY. PT REPORTED TO REHAB PHYSICIAN SHE FELT SHE WAS HAVING PROBLEMS WITH URINARY RETENTION. BLADDER SCAN COMPLETED BY TECH WITH RESULTS AROUND 140 ML. NO FURTHER ORDERS AT THIS TIME. PT HAS NO OTHER CONCERNS AT THIS TIME. CLWR. WCTM.
[2019-01-28 20:30] VITALS: BP 139/60
--- NOTE | 2019-01-29 06:18 | NUR ---
PATIENT HAS SLEPT WELL THROUGHOUT THE NIGHT. VSS ON 2L 02 VIA NASAL CANNULA. PAIN HAS BEEN WELL CONTROLLED. MEDICATIONS GIVEN ORDERED AND CHARTED. PATIENT HAS NOT BEEN UP DURING THE NIGHT. DRESSING TO RIGHT LEG IS C/D/I AND SCD'S ON. COLOSTOMY INTACT WITH MODERATE AMOUNT OF STOOL. IV IN LEFT HAND-SL. PATIENT INSTRUCTED TO USE CALL LIGHT WHEN NEEDING ASSISTANCE. FALL PRECAUTIONS IN PLACE AND HOURLY ROUNDS MADE. WILL CONTINUE WITH PLAN OF CARE AND NURSING TO MONITOR.
[2019-01-29 08:00] VITALS: BP 105/44
[2019-01-29 10:56] LABS: CREATININE 2.3 mg/dL (0.6-1.3); POTASSIUM 3.7 mmol/L (3.5-5.1)
--- NOTE | 2019-01-29 11:27 | NUR ---
CORRINE FROM [facility] CAME OUT TO SEE PT.AND DAUGHTER,FRIDA. ANSWERED ALL OF THEIR QUESTIONS. SHE TOLD CM THEY CAN ACCEPT PT.TO A SKILLED BED AT [facility] TODAY. CM HAD SPOKEN WITH MARY/RAFAEL EARLIER. SHE SAID PT.'S INS.THAT SHE HAS NOW TERMS ON 02/03. ASKING WHAT OTHER INSURANCE PT. WILL HAVE. DAUGHTER STATED THAT SHE WILL HAVE TRADITIONAL MEDICARE. INFORMED MARY. SHE SET UP [facility] FOR 1300. CHART COPIED TO GO WITH PT. JAYLENE RN TO CALL REPORT AND SEND 3 DAYS OF OSTOMY SUPPLIES FOR PT. SARAH FAXED DISCHARGE ORDERS TO MARY/[facility]. DAUGHTER IS GOING TO GO HOME TO GET CLOTHES FOR PT.TO WEAR AND SHOE FOR LEFT FOOT. GAVE AND DISCUSSED RAMP INFORMATION TO DAUGHTER AND DISCUSSED.
[2019-01-29 12:20] VITALS: BP 105/44
--- NOTE | 2019-01-29 13:29 | NUR ---
PT.UNABLE TO GET INTO FOR TRANSFER VIA [facility]. AMBULANCE ORDERED VIA [facility]. NOTIFIED MARY/VALERIA LUCAS.
--- NOTE | 2019-01-29 16:09 | NUR ---
ASSUMED CARE OF PATIENT AT APPROX 0730. ALERT AND OREINTED X4. ASSESSMENT COMPLETED AND CHARTED. VSS ON ROOM AIR. PAIN MANAGED WITH ORAL MEDICATION. PATIENT SEEN BY THERAPIES TODAY AND UNABLE TO DO MUCH WITH THEM. PATIENT DISCHARGED AT 1600, TRANSPORTED TO [facility], TRANSFERRED TO CART WITH ASSISTANCE OF 2 EMS AND THIS NURSE. ALL PERSONAL BELONGINGS, PRESCRIPTIONS AND DISCHARGE PACKET.
--- NOTE | 2019-01-30 11:07 | CON ---
[address] [address] CONSULTATION Name: JOE BREWSTER Room: [address]#: [id number] Admission: 01/23/19 Attend Phys: Wyatt Rey MD Discharge: 01/29/19 Date of : 38 Report #: [id number] THIS REPORT FOR: //name// CC: Wyatt Pino REASON FOR CONSULTATION: Chronic kidney disease and hyperkalemia. HISTORY OF PRESENT ILLNESS: The patient is a 78-year-old female with history of known chronic kidney disease stage 4, baseline creatinine of 1.9-2.2 with GFR of 23-[address] House and Dr. Tuttle of our practice, history of essential hypertension, diabetes, admitted status post fall and sustained right femur fracture. We are consulted today after she was noted to have a creatinine of 2.4 and potassium of 6.1. Fall happened after tripping over. She has had a previous knee surgery on the right side. No loss of consciousness or syncope. Denies any urinary complaints. She has been on losartan before for blood pressure control. No potassium supplements. No Aldactone or any other potassium-sparing diuretic. Denies dysuria, urgency, urinary frequency. Has a Reyna catheter in place with about 600 mL of urine output in the last 6 hours. PAST MEDICAL HISTORY: As mentioned above, atrial fibrillation, ankle sprain, CHF exacerbation, closed fracture of the right distal femur, colovesical fistula, she has colostomy in place, fracture of distal end of right femur, history of rectal bleeding, urinary tract infections. ALLERGIES: The patient is not allergic to any medications. HOME MEDICATIONS: Insulin glargine 40 units b.i.d., torsemide 40 mg daily, aspirin 81 mg daily, pantoprazole 40 mg daily, losartan 25 mg daily and Trulicity 0.75 mg weekly. PAST SURGICAL HISTORY: Colostomy, right wrist repair and right knee surgery, cholecystectomy, hysterectomy. SOCIAL HISTORY: No current smoking, no recreational drugs, no alcohol. REVIEW OF SYSTEMS: The 12-point review of system was done and pertinent positives are mentioned in the history of present illness. All other systems are reviewed and negative. PHYSICAL EXAMINATION: GENERAL: She does not appear to be in any respiratory distress at this time working with PT. HEENT: Normocephalic, atraumatic head. Pupils are equal, reactive to light. Extraocular muscles are intact. LUNGS: Clear lungs bilaterally. No wheezing, no JVD. NECK: [place] [address] CONSULTATION Name: JOE BREWSTER Room: [address]#: [id number] Admission: 01/23/19 Attend Phys: Wyatt Rey MD Discharge: 01/29/19 Date of : 38 Report #: [id number] CARDIOVASCULAR: Showed normal S1 and S2. No murmur, gallop or rubs. ABDOMEN: Soft, has a colostomy in place. GENITOURINARY: Has a Reyna catheter with clear urine in the bag. EXTREMITIES: Showed no edema, no clubbing. Has slightly externally rotated right lower extremity and tenderness at the fracture site. DIAGNOSTIC DATA: CT reviewed. She has severely comminuted and laterally displaced right supracondylar fracture of the distal femur. LABORATORY VALUES: [place] [address].4, hemoglobin from 10.5 two days ago, platelet count is at 172. Urinalysis: Clear yellow urine blood plus and protein negative. Chemistry showed potassium of 6.1, sodium 142, chloride 104, carbon dioxide 30, BUN and creatinine are 57 and 2.4, glucose of 214. IMPRESSION: 1. Chronic kidney disease stage 4, likely diabetic/hypertensive nephropathy. Baseline creatinine of 2.2 with GFR of 23-[address] House/Dr. Tuttle in our office. 2. Hyperkalemia, likely multifactorial, including use of ARB, losartan and possibly volume depletion with decreased distal delivery of sodium to the distal renal tubule leading to decreased potassium excretion. 3. Essential hypertension. 4. Diabetes mellitus type 2. 5. Obesity. 6. Comminuted right femur fracture. PLAN: Medical management of hyperkalemia with Kayexalate, calcium gluconate, insulin with D50. Recheck potassium level. Further recommendations to follow based on repeat labs. Discussed with RN to call us with results of labs. She has a Reyna catheter in place. Strict I's and O's. Further recommendations to follow. <ELECTRONICALLY SIGNED> By: Isra Spangler MD 01/30/19 1107 1144 [id number] Spangler MD /nt
== END 2019-01-29 16:00 | DRG 956 ==
LOC: M.ERS 22:25 → M.ORTHSURG 23:36 → M.TBA-ER 23:36 → M.ORTHSURG 01-24 00:31
PROVIDERS: Family Medicine; Internal Medicine Nephrology; Orthopaedic Surgery; ADMIT Internal Medicine
PROC: 0QSB04Z Reposition Right Lower Femur with Internal Fixation Device, Open Approach (ICD-10-PCS; principal; 2019-01-24)
PROC: 30233N1 Transfusion of Nonautologous Red Blood Cells into Peripheral Vein, Percutaneous Approach (ICD-10-PCS; 2019-01-25)
DX: S72.451A Displaced supracondylar fracture without intracondylar extension of lower end of right femur, initial encounter for closed fracture (principal); S32.591A Other specified fracture of right pubis, initial encounter for closed fracture; N17.0 Acute kidney failure with tubular necrosis; R65.11 Systemic inflammatory response syndrome (SIRS) of non-infectious origin with acute organ dysfunction; S32.511A Fracture of superior rim of right pubis, initial encounter for closed fracture; N18.4 Chronic kidney disease, stage 4 (severe); I13.0 Hypertensive heart and chronic kidney disease with heart failure and stage 1 through stage 4 chronic kidney disease, or unspecified chronic kidney disease; D62 Acute posthemorrhagic anemia; I50.9 Heart failure, unspecified; I48.91 Unspecified atrial fibrillation; E11.22 Type 2 diabetes mellitus with diabetic chronic kidney disease; E66.9 Obesity, unspecified; E87.5 Hyperkalemia; W01.0XXA Fall on same level from slipping, tripping and stumbling without subsequent striking against object, initial encounter; J45.909 Unspecified asthma, uncomplicated; Z93.3 Colostomy status; Z79.899 Other long term (current) drug therapy; Z79.4 Long term (current) use of insulin; Z79.82 Long term (current) use of aspirin; Z87.440 Personal history of urinary (tract) infections; Z90.49 Acquired absence of other specified parts of digestive tract; Z90.710 Acquired absence of both cervix and uterus; Z68.38 Body mass index [BMI] 38.0-38.9, adult; Y93.89 Activity, other specified; Y92.89 Other specified places as the place of occurrence of the external cause; Y99.8 Other external cause status

== ENCOUNTER → 2019-03-13 | Outpatient (CLI) | payer MEDICARE, MEDICAID ==
[~2019-03-13] MED LIST changes: +AUGMENTIN 875-1 EACH PO; +ENOXAPARIN30 MG/0.1 SUBQ; +OXYCODONE HCL 55 MG PO; +TRAMADOL 50 MG50 MG PO
== END ==
LOC: M.WC 08:56
DX: E11.621 Type 2 diabetes mellitus with foot ulcer (principal); L89.612 Pressure ulcer of right heel, stage 2; L97.412 Non-pressure chronic ulcer of right heel and midfoot with fat layer exposed; E11.40 Type 2 diabetes mellitus with diabetic neuropathy, unspecified; G47.30 Sleep apnea, unspecified; I10 Essential (primary) hypertension; J45.909 Unspecified asthma, uncomplicated; F41.9 Anxiety disorder, unspecified; F32.9 Major depressive disorder, single episode, unspecified; Z79.4 Long term (current) use of insulin; Z79.82 Long term (current) use of aspirin; Z90.49 Acquired absence of other specified parts of digestive tract; Z90.710 Acquired absence of both cervix and uterus

== ENCOUNTER → 2019-03-20 | Outpatient (CLI) | payer MEDICARE, MEDICAID | LOC: M.WC 04:41 | DX: E11.621 Type 2 diabetes mellitus with foot ulcer (principal); L89.612 Pressure ulcer of right heel, stage 2; L97.411 Non-pressure chronic ulcer of right heel and midfoot limited to breakdown of skin; E11.40 Type 2 diabetes mellitus with diabetic neuropathy, unspecified; G47.30 Sleep apnea, unspecified; I10 Essential (primary) hypertension; J45.909 Unspecified asthma, uncomplicated; F41.9 Anxiety disorder, unspecified; F32.9 Major depressive disorder, single episode, unspecified ==

== ENCOUNTER → 2019-04-04 | Outpatient (CLI) | payer MEDICARE, MEDICAID | LOC: M.WC 04-03 10:30 | DX: E11.621 Type 2 diabetes mellitus with foot ulcer (principal); L89.612 Pressure ulcer of right heel, stage 2; L97.411 Non-pressure chronic ulcer of right heel and midfoot limited to breakdown of skin; E11.40 Type 2 diabetes mellitus with diabetic neuropathy, unspecified; G47.30 Sleep apnea, unspecified; I10 Essential (primary) hypertension; J45.909 Unspecified asthma, uncomplicated; F41.9 Anxiety disorder, unspecified; F32.9 Major depressive disorder, single episode, unspecified ==

== ENCOUNTER → 2019-04-17 | Outpatient (CLI) | payer MEDICARE, MEDICAID | LOC: M.WC 05:28 | DX: E11.621 Type 2 diabetes mellitus with foot ulcer (principal); L89.612 Pressure ulcer of right heel, stage 2; L97.412 Non-pressure chronic ulcer of right heel and midfoot with fat layer exposed; E11.40 Type 2 diabetes mellitus with diabetic neuropathy, unspecified; G47.30 Sleep apnea, unspecified; J45.909 Unspecified asthma, uncomplicated; I10 Essential (primary) hypertension; F41.9 Anxiety disorder, unspecified; F32.9 Major depressive disorder, single episode, unspecified ==

== ENCOUNTER 2019-04-21 11:39 | Inpatient (IN) | payer MEDICARE, MEDICAID ==
[~2019-04-21] VITALS: Ht 152.4 cm; Wt 92.5 kg
[2019-04-21 11:40] VITALS: BP 111/60
[2019-04-21 12:52] LABS: ABSOLUTE BASOPHILS 0.3 thou/uL (0.0-0.2); ABSOLUTE EOSINOPHILS 0.6 thou/uL (0.0-0.7); ABSOLUTE LYMPHOCYTES 1.8 thou/uL (0.8-5.3); ABSOLUTE MONOCYTES 1.2 thou/uL (0.0-1.2); ABSOLUTE NEUTROPHILS 8.5 thou/uL (1.6-8.1); BASOPHILS 2.3 %; EOSINOPHILS 5.1 %; HEMATOCRIT 36.5 % (37.0-47.0); HEMOGLOBIN 12.2 gm/dL (12.0-15.0); LYMPHOCYTES 14.3 %; MCH 27.8 pg (26.0-34.0); MCHC 33.4 g/dL (28.0-37.0); MCV 83.3 fL (80.0-100.0); MONOCYTES 9.3 %; MPV 7.8 fl. (7.2-11.1); NUCLEATED RBCS 0 /100WBC; PLATELET COUNT* 232 thou/uL (150-400); RBC 4.38 mil/uL (4.20-5.00); RDW-CV 14.8 % (10.5-14.5); WBC 12.4 thou/uL (4.0-11.0)
[2019-04-21 13:11] LABS: ANION GAP 9 mmol/L (7-16); BUN 50 mg/dL (7-18); CALCIUM 8.5 mg/dL (8.5-10.1); CHLORIDE 99 mmol/L (98-107); CO2 31 mmol/L (21-32); CREATININE 2.1 mg/dL (0.6-1.3); GLUCOSE 106 mg/dL (70-99); POTASSIUM 4.2 mmol/L (3.5-5.1); SODIUM 139 mmol/L (136-145)
[2019-04-21 13:23] LABS: ALBUMIN 3.1 g/dL (3.4-5.0); ALKALINE PHOSPHATASE 96 U/L (46-116); NT-PRO BRAIN NAT PEPTIDE 2111 pg/mL (<300); SGOT 20 U/L (15-37); SGPT 28 U/L (30-65); TOTAL BILIRUBIN 0.5 mg/dL (<0.1-1.0); TOTAL PROTEIN 6.9 g/dL (6.4-8.2); TROPONIN-I LEVEL <0.06 ng/mL (<0.06)
[2019-04-21 15:15] LABS: BE 0.2 mmol/L (-2 to +3); PCO2 37.8 mmHg (35.0-45.0); pH 7.425 (7.340-7.450)
[2019-04-21 15:27] VITALS: BP 123/61
[2019-04-21 16:00] VITALS: BP 139/61
--- NOTE | 2019-04-21 17:17 | EKG ---
[place] [address] ELECTROCARDIOGRAM REPORT Name: JOE BREWSTER Room: [address] ADM [facility].#: [id number] Admission: 04/21/19 Attend Phys: Victor Manuel Black MD Discharge: Date of : 38 Report #: [id number] THIS REPORT FOR: //name// [facility] ED Test Date: 2019-04-21 Test Time: 12:20:26 Pat Name: JOE BREWSTER Department: Room: [facility] Gender: F Document Control Manager: ESPINOZA : 1940 Requested By: Storm Grimes Order Number: [id number] MD: Eliseo Kang Measurements Intervals [place] Rate: 103 P: [place]: QRS: 78 QRSD: 145 T: 31 QT: 366 QTc: 479 Interpretive Statements Atrial fibrillation Right bundle branch block Compared to ECG 01/23/2019 23:35:32 No significant changes Electronically Signed On 04-21-2019 17:17:17 CDT by Eliseo Kang [email or web address] <ELECTRONICALLY SIGNED> By: Eliseo Kang MD, [facility] 04/21/19 1717 1220 1220 Eliseo Kang MD, FACC /EPI
--- NOTE | 2019-04-21 18:09 | NUR ---
PT ADMITTED AT 1600 FROM ER. ON 3 L NC O2 SATURATION IS 95%. AFIB ON AIR ROUTE CONTROLLER. IV ABX GIVEN ORDERED. PT IS NON WEIGHTBEARING ON RIGHT LOWER EXTREMITY DUE TO RECENT KNEE SX. PT USES BEDPAN. ACCUCHECK AC/HS. NO COMPLAINT. VSS. ADMISSION ASSESSMENT PERFORMED. PT HAS A WOUND IN RIGHT HEEL ,PICTURE TAKEN. WOUND CARE CONSULTED. WILL CONTINUE TO MONITOR PT
--- NOTE | 2019-04-21 18:27 | NUR ---
PT HAS A COLOSTOMY IN LEFT UPPER ABDOMEN. INTACT, DRY.
[2019-04-21 20:00] VITALS: BP 108/51
--- NOTE | 2019-04-21 23:27 | NUR ---
PT GIVEN LUNCH BOX WITH HS INSULIN. PT HAS COARSE COUGH. NO RESP DISTRESS. MAINTAING O2 SAT ON 2L. VOIDED PER BEDPAN. CALL LIGHT IN REACH. TRACING AFIB ON MONITOR. HOURLY ROUNDING FOR SAFETY.
[2019-04-22] VITALS: BP 123/50
[2019-04-22 04:00] VITALS: BP 122/50
[2019-04-22 05:36] LABS: HEMATOCRIT 35.4 % (37.0-47.0); HEMOGLOBIN 11.9 gm/dL (12.0-15.0); MCH 28.2 pg (26.0-34.0); MCHC 33.6 g/dL (28.0-37.0); MCV 83.8 fL (80.0-100.0); MPV 8.3 fl. (7.2-11.1); NUCLEATED RBCS 0 /100WBC; PLATELET COUNT* 218 thou/uL (150-400); RBC 4.23 mil/uL (4.20-5.00); RDW-CV 14.8 % (10.5-14.5); WBC 10.7 thou/uL (4.0-11.0)
[2019-04-22 06:10] LABS: CALCIUM 8.9 mg/dL (8.5-10.1); CREATININE 2.4 mg/dL (0.6-1.3); MAGNESIUM 2.2 mg/dL (1.8-2.4); POTASSIUM 4.8 mmol/L (3.5-5.1)
[2019-04-22 06:46] LABS: ABSOLUTE LYMPHOCYTES 0.3 thou/uL (0.8-5.3); ABSOLUTE MONOCYTES 0.1 thou/uL (0.0-1.2); ABSOLUTE NEUTROPHILS 10.3 thou/uL (1.6-8.1); MYELOCYTES 1 %; PLATELET ESTIMATE ADEQUATE
[2019-04-22 07:30] VITALS: BP 125/65
--- NOTE | 2019-04-22 09:54 | NUR ---
ASSUMED PT CARE AT 0730, AOX4, UP WITH ASSIST, O2 SAT 90'S RA. TRACING AFIB ON TELE. PT DENIES PAIN. PT FOR ACCU CHECK. PT HAS R HEEL OPEN SORE NOTED. PT ON ANTIBIOTIC, IV ACCESS INTACT. LUNG SOUND WHEEZE. LAST BM 04/21/19. VSS, AM ASSESSMENT CHARTED. MEDS GIVEN PER OCT. CALL LIGHT WITHIN REACH, WILL CONTINUE TO MONITOR
[2019-04-22 11:06] VITALS: BP 128/57
--- NOTE | 2019-04-22 11:18 | NUR ---
Pt is A&O. Resides at home and her youngest dtr lives at home with her. Pt has a walker and wc at home. Dtr is Pt's pd caregiver through the [employer], dtr assists with ADLs and completes all IADLs. Pt wears home o2 at [facility] provided through [facility]. No hx of HH. Hx of skilled at [place]. Goal [place], [place] to [place] if needed. Following.
--- NOTE | 2019-04-22 12:31 | NUR ---
WOUND CARE NOTE: CONSULT RECEIVED FOR RIGHT HEEL WOUND. PATIENT PRESENTS WITH AN UNSTAGEABLE PRESSURE ULCER TO THE RIGHT HEEL. DRY, BLACK ESCHAR, STABLE MEASURES 1X1. SHAUNA-WOUND INTACT. CLEANSED WITH WOUND CLEANSER, PATTED DRY. PATIENT STATES SHE SEES THE SURGICAL GROUP HERE, BELIEVES IT IS DR. MARTINEZ. PATIENT APPLIES AQUACEL AG AND BORDERED FOAM AT HOME. WILL CONTINUE THAT HERE, THIS WAS APPLIED. PATIENT TOLERATED DRESSING CHANGE WELL. EDUCATED PATIENT ON IMPORTANCE OF KEEPING HEEL OFF BED. PATIENT COMPLIED AND ALLOWED US TO PLACE A PILLOW UNDER CALF TO FLOAT HEEL. PATIENT ALSO HAS BEEN STICKING HER LEG OFF THE BED AND ALLOWING THE FOOT TO DANGLE, KEEPING PRESSURE OFF. RECOMMEND DAILY DRESSING CHANGES TIGHT BLOOD GLUCOSE CONTROL KEEP WOUND OFF BED FOLLOW UP WITH PHYSICIAN CURRENTLY TREATING WOUND.
[2019-04-22 15:45] VITALS: BP 120/56
[2019-04-22 20:00] VITALS: BP 111/48
[2019-04-23] VITALS: BP 118/40
[2019-04-23 04:00] VITALS: BP 116/48
--- NOTE | 2019-04-23 05:16 | NUR ---
ASSUMED PATIENT CARE AT 1900. PATIENT ALERT AND ORIENTED TIMES FOUR. HOPES TO GO HOME TODAY. NO COMPLAINTS OF PAIN OR DISCOMFORT NOTED THROUGH SHIFT. STRAW HAT BRUSHER AND HOURLY ROUNDING COMLETED CHARTED.
[2019-04-23 05:25] LABS: ABSOLUTE LYMPHOCYTES 0.7 thou/uL (0.8-5.3); ABSOLUTE MONOCYTES 0.6 thou/uL (0.0-1.2); ABSOLUTE NEUTROPHILS 12.3 thou/uL (1.6-8.1); HEMATOCRIT 35.9 % (37.0-47.0); HEMOGLOBIN 11.7 gm/dL (12.0-15.0); LYMPHOCYTES 5.1 %; MCH 27.5 pg (26.0-34.0); MCHC 32.6 g/dL (28.0-37.0); MCV 84.3 fL (80.0-100.0); MONOCYTES 4.7 %; MPV 7.8 fl. (7.2-11.1); NUCLEATED RBCS 0 /100WBC; PLATELET COUNT* 269 thou/uL (150-400); POLYS 90.2 %; RBC 4.26 mil/uL (4.20-5.00); RDW-CV 15.2 % (10.5-14.5); WBC 13.6 thou/uL (4.0-11.0)
[2019-04-23 05:50] LABS: CALCIUM 8.5 mg/dL (8.5-10.1); CREATININE 2.9 mg/dL (0.6-1.3); POTASSIUM 4.7 mmol/L (3.5-5.1); TOTAL BILIRUBIN 0.2 mg/dL (<0.1-1.0); TOTAL PROTEIN 6.5 g/dL (6.4-8.2)
[2019-04-23 08:00] VITALS: BP 139/63
--- NOTE | 2019-04-23 09:07 | NUR ---
Nutrition: Pt assessed for pressure ulcer risk. Admitted with PNA, ARF. BUN 79, cr 2.9, BG 280, albumin 3. 2gm Na diet. Wt down 20# in one yr, gradual wt loss is goal. Current wt 204#. GOAL: tight BG control. Possible disch today. Appears at low risk at this time.
[2019-04-23 12:00] VITALS: BP 117/56
--- NOTE | 2019-04-23 12:58 | NUR ---
ASSUMED PT CARE AT 0800, AOX4, UP WITH ASSIST, O2 SAT 90'S RA. PT DENIES PAIN. TRACING AFIB ON TELE. PT FOR ACCU CHECK. PT HAS R HEEL OPEN SORE, C/D/I. PT LUNG SOUND COARSE, PT COUGH THICK SECRETION NOTED. VSS, AM ASSESSMENT CHARTED. MEDS GIVEN PER OCT. CALL LIGHT WITHIN REACH. WILL CONTINUE TO MONITOR.
[2019-04-23 16:00] VITALS: BP 116/41
[2019-04-23 20:00] VITALS: BP 112/30
[2019-04-24 00:32] VITALS: BP 127/56
[2019-04-24 04:30] VITALS: BP 132/62
[2019-04-24 04:45] LABS: ABSOLUTE LYMPHOCYTES 0.7 thou/uL (0.8-5.3); ABSOLUTE MONOCYTES 0.8 thou/uL (0.0-1.2); ABSOLUTE NEUTROPHILS 9.7 thou/uL (1.6-8.1); BASOPHILS 0.1 %; HEMATOCRIT 32.9 % (37.0-47.0); LYMPHOCYTES 6.1 %; MCH 27.8 pg (26.0-34.0); MCHC 33.3 g/dL (28.0-37.0); MCV 83.5 fL (80.0-100.0); MONOCYTES 7.4 %; MPV 7.9 fl. (7.2-11.1); NUCLEATED RBCS 0 /100WBC; PLATELET COUNT* 261 thou/uL (150-400); POLYS 86.4 %; RBC 3.95 mil/uL (4.20-5.00); RDW-CV 14.6 % (10.5-14.5); WBC 11.3 thou/uL (4.0-11.0)
--- NOTE | 2019-04-24 04:50 | NUR ---
ASSUMED PATIENT CARE AT 1900. PATIENT ALERT AND ORIENTED TIMES FOUR. VERBALIZES USE OF INCENTIVE SPRIOMETER. NO COMPLAINTS OF PAIN OR DISCOMFORT NOTED. FOREST ECOLOGY PROFESSOR AND HOURLY ROUNDING COMPLETED CHARTED.
[2019-04-24 05:07] LABS: ALBUMIN 2.8 g/dL (3.4-5.0); CALCIUM 8.3 mg/dL (8.5-10.1); CREATININE 2.7 mg/dL (0.6-1.3); POTASSIUM 4.7 mmol/L (3.5-5.1); TOTAL BILIRUBIN 0.3 mg/dL (<0.1-1.0); TOTAL PROTEIN 6.2 g/dL (6.4-8.2)
[2019-04-24 08:00] VITALS: BP 119/55
[2019-04-24] MEDS ORDERED: PREDNISONE 10 M10 MG PO (14:42)
[2019-04-24] MEDS ORDERED: AUGMENTIN 875-1 EACH PO (14:47)
[2019-04-24] MEDS ORDERED: PROTONIX40 M1 PO (14:49)
[2019-04-24 14:52] VITALS: BP 119/55
== END 2019-04-24 15:46 | disposition home or self-care (01) | DRG 871 ==
LOC: M.ERS 11:39 → M.2W 14:17 → M.TBA-ER 14:17 → M.2W 15:42
PROVIDERS: Emergency Medicine Emergency Medical Services; Internal Medicine; ADMIT Family Medicine
DX: A41.9 Sepsis, unspecified organism (principal); J15.6 Pneumonia due to other Gram-negative bacteria; J96.01 Acute respiratory failure with hypoxia; I50.32 Chronic diastolic (congestive) heart failure; J45.901 Unspecified asthma with (acute) exacerbation; D68.59 Other primary thrombophilia; N18.4 Chronic kidney disease, stage 4 (severe); N17.9 Acute kidney failure, unspecified; I13.0 Hypertensive heart and chronic kidney disease with heart failure and stage 1 through stage 4 chronic kidney disease, or unspecified chronic kidney disease; J45.909 Unspecified asthma, uncomplicated; I48.91 Unspecified atrial fibrillation; Z90.49 Acquired absence of other specified parts of digestive tract; Z90.710 Acquired absence of both cervix and uterus; Z93.3 Colostomy status; Z87.81 Personal history of (healed) traumatic fracture; Z79.4 Long term (current) use of insulin

== ENCOUNTER → 2019-05-01 | Outpatient (CLI) | payer MEDICARE, MEDICAID ==
[~2019-05-01] MED LIST changes: +PREDNISONE 10 M10 MG PO
== END ==
LOC: M.WC 04:45
DX: E11.621 Type 2 diabetes mellitus with foot ulcer (principal); L97.412 Non-pressure chronic ulcer of right heel and midfoot with fat layer exposed; L89.612 Pressure ulcer of right heel, stage 2; G47.30 Sleep apnea, unspecified; E11.40 Type 2 diabetes mellitus with diabetic neuropathy, unspecified; I10 Essential (primary) hypertension; J45.909 Unspecified asthma, uncomplicated; F41.9 Anxiety disorder, unspecified; F32.9 Major depressive disorder, single episode, unspecified

== ENCOUNTER → 2019-05-15 | Outpatient (CLI) | payer MEDICARE, MEDICAID | LOC: M.WC 06:03 | DX: E11.621 Type 2 diabetes mellitus with foot ulcer (principal); L89.612 Pressure ulcer of right heel, stage 2; L97.411 Non-pressure chronic ulcer of right heel and midfoot limited to breakdown of skin; E11.40 Type 2 diabetes mellitus with diabetic neuropathy, unspecified; G47.30 Sleep apnea, unspecified; I10 Essential (primary) hypertension; J45.909 Unspecified asthma, uncomplicated; F41.9 Anxiety disorder, unspecified; F32.9 Major depressive disorder, single episode, unspecified ==

== ENCOUNTER → 2019-05-29 | Outpatient (CLI) | payer MEDICARE, MEDICAID | LOC: M.WC 00:48 | DX: E11.621 Type 2 diabetes mellitus with foot ulcer (principal); L89.612 Pressure ulcer of right heel, stage 2; L97.412 Non-pressure chronic ulcer of right heel and midfoot with fat layer exposed; E11.40 Type 2 diabetes mellitus with diabetic neuropathy, unspecified; G47.30 Sleep apnea, unspecified; I10 Essential (primary) hypertension; J45.909 Unspecified asthma, uncomplicated; F41.9 Anxiety disorder, unspecified; F32.9 Major depressive disorder, single episode, unspecified ==

== ENCOUNTER → 2019-06-11 | Outpatient (CLI) | payer MEDICARE, MEDICAID | LOC: M.WC 03:18 | DX: E11.621 Type 2 diabetes mellitus with foot ulcer (principal); L89.612 Pressure ulcer of right heel, stage 2; L97.411 Non-pressure chronic ulcer of right heel and midfoot limited to breakdown of skin; E11.40 Type 2 diabetes mellitus with diabetic neuropathy, unspecified; G47.30 Sleep apnea, unspecified; I10 Essential (primary) hypertension; J45.909 Unspecified asthma, uncomplicated; F41.9 Anxiety disorder, unspecified; F32.9 Major depressive disorder, single episode, unspecified ==

== ENCOUNTER → 2019-06-19 | Outpatient (CLI) | payer MEDICARE, MEDICAID | LOC: M.WC 05:06 | DX: E11.621 Type 2 diabetes mellitus with foot ulcer (principal); L89.612 Pressure ulcer of right heel, stage 2; L97.411 Non-pressure chronic ulcer of right heel and midfoot limited to breakdown of skin; E11.40 Type 2 diabetes mellitus with diabetic neuropathy, unspecified; G47.30 Sleep apnea, unspecified; I10 Essential (primary) hypertension; J45.909 Unspecified asthma, uncomplicated; F41.9 Anxiety disorder, unspecified; F32.9 Major depressive disorder, single episode, unspecified ==

== ENCOUNTER → 2019-06-25 | Outpatient (CLI) | payer MEDICARE, MEDICAID | LOC: M.WC 04:55 | DX: E11.621 Type 2 diabetes mellitus with foot ulcer (principal); L89.612 Pressure ulcer of right heel, stage 2; L97.411 Non-pressure chronic ulcer of right heel and midfoot limited to breakdown of skin; E11.40 Type 2 diabetes mellitus with diabetic neuropathy, unspecified; G47.30 Sleep apnea, unspecified; I10 Essential (primary) hypertension; J45.909 Unspecified asthma, uncomplicated; F41.9 Anxiety disorder, unspecified; F32.9 Major depressive disorder, single episode, unspecified ==

== ENCOUNTER → 2019-07-02 | Outpatient (CLI) | payer MEDICARE, MEDICAID | LOC: M.WC 05:41 | DX: E11.621 Type 2 diabetes mellitus with foot ulcer (principal); L89.612 Pressure ulcer of right heel, stage 2; L97.411 Non-pressure chronic ulcer of right heel and midfoot limited to breakdown of skin; E11.40 Type 2 diabetes mellitus with diabetic neuropathy, unspecified; G47.30 Sleep apnea, unspecified; I10 Essential (primary) hypertension; J45.909 Unspecified asthma, uncomplicated; F41.9 Anxiety disorder, unspecified; F32.9 Major depressive disorder, single episode, unspecified ==

== ENCOUNTER → 2019-07-09 | Outpatient (CLI) | payer MEDICARE, MEDICAID | LOC: M.WC 03:57 | DX: E11.621 Type 2 diabetes mellitus with foot ulcer (principal); L89.612 Pressure ulcer of right heel, stage 2; L97.411 Non-pressure chronic ulcer of right heel and midfoot limited to breakdown of skin; E11.40 Type 2 diabetes mellitus with diabetic neuropathy, unspecified; G47.30 Sleep apnea, unspecified; I10 Essential (primary) hypertension; J45.909 Unspecified asthma, uncomplicated; F41.9 Anxiety disorder, unspecified; F32.9 Major depressive disorder, single episode, unspecified ==

== ENCOUNTER → 2019-07-23 | Outpatient (CLI) | payer MEDICARE, MEDICAID | LOC: M.WC 05:18 | DX: E11.621 Type 2 diabetes mellitus with foot ulcer (principal); L89.612 Pressure ulcer of right heel, stage 2; L97.412 Non-pressure chronic ulcer of right heel and midfoot with fat layer exposed; E11.40 Type 2 diabetes mellitus with diabetic neuropathy, unspecified; G47.30 Sleep apnea, unspecified; I10 Essential (primary) hypertension; J45.909 Unspecified asthma, uncomplicated; F41.9 Anxiety disorder, unspecified; F32.9 Major depressive disorder, single episode, unspecified ==

== ENCOUNTER → 2019-08-13 | Outpatient (CLI) | payer MEDICARE, MEDICAID | LOC: M.WC 10:32 | DX: E11.621 Type 2 diabetes mellitus with foot ulcer (principal); L89.612 Pressure ulcer of right heel, stage 2; L97.411 Non-pressure chronic ulcer of right heel and midfoot limited to breakdown of skin; E11.40 Type 2 diabetes mellitus with diabetic neuropathy, unspecified; G47.30 Sleep apnea, unspecified; I10 Essential (primary) hypertension; J45.909 Unspecified asthma, uncomplicated; F41.9 Anxiety disorder, unspecified; F32.9 Major depressive disorder, single episode, unspecified ==

== ENCOUNTER 2019-08-21 05:29 | Inpatient (IN) | payer MEDICARE, MEDICAID ==
[~2019-08-21] VITALS: Ht 160 cm; Wt 107.5 kg
[2019-08-21] VITALS (10 sets, daily range): BP systolic 80–161; BP diastolic 36–91
[2019-08-21] MEDS ORDERED: CALCIUM PO (05:51)
[2019-08-21] MEDS ORDERED: VITAMIN C500 M1 (05:52)
[2019-08-21] MEDS ORDERED: VITAMIN D2 (05:52)
[2019-08-21 06:09] LABS: ABSOLUTE BASOPHILS 0.2 thou/uL (0.0-0.2); ABSOLUTE EOSINOPHILS 0.2 thou/uL (0.0-0.7); ABSOLUTE LYMPHOCYTES 1.8 thou/uL (0.8-5.3); ABSOLUTE MONOCYTES 1.1 thou/uL (0.0-1.2); ABSOLUTE NEUTROPHILS 11.9 thou/uL (1.6-8.1); BASOPHILS 1.1 %; EOSINOPHILS 1.5 %; HEMATOCRIT 33.4 % (37.0-47.0); HEMOGLOBIN 11.3 gm/dL (12.0-15.0); MCH 28.7 pg (26.0-34.0); MCHC 33.9 g/dL (28.0-37.0); MCV 84.7 fL (80.0-100.0); MONOCYTES 7.3 %; MPV 7.6 fl. (7.2-11.1); NUCLEATED RBCS 0 /100WBC; PLATELET COUNT* 192 thou/uL (150-400); POLYS 78.1 %; RBC 3.95 mil/uL (4.20-5.00); RDW-CV 14.4 % (10.5-14.5); WBC 15.3 thou/uL (4.0-11.0)
[2019-08-21 06:10] LABS: CALCIUM 8.2 mg/dL (8.5-10.1); CREATININE 3.6 mg/dL (0.6-1.3); POTASSIUM 5.3 mmol/L (3.5-5.1)
[2019-08-21 06:14] LABS: APTT 27.3 Seconds (25.0-31.3); INR 1.1; PROTIME 10.8 Seconds (9.20-11.50)
[2019-08-21 06:25] LABS: TOTAL BILIRUBIN 0.7 mg/dL (<0.1-1.0); TOTAL PROTEIN 6.4 g/dL (6.4-8.2)
--- NOTE | 2019-08-21 15:04 | NUR ---
Pt was on the phone when CM went to assess and requested that CM come back later.
[2019-08-21 15:33] LABS: BE -5.8 mmol/L (-2 to +3); PCO2 31.5 mmHg (35.0-45.0); pH 7.382 (7.340-7.450)
[2019-08-21 15:38] LABS: PO2 55.8 mmHg (75.0-100.0)
--- NOTE | 2019-08-21 15:38 | 2DMMODE ---
[place] [address] 2 D/M-MODE ECHOCARDIOGRAM Name: JOE BREWSTER Room: [address] IN [facility]#: [id number] Admission: 08/21/19 Attend Phys: Marky Frey Discharge: Date of : 38 Date of Service: 08/21/19 1538 Report #: [id number] THIS REPORT FOR: //name// APPROVED REPORT Study performed: 08/21/2019 11:56:37 EXAM: Comprehensive 2D, Doppler, and color-flow Echocardiogram Patient Location: In-Patient Room #: [facility] Status: routine BSA: 2.04 HR: 50 bpm BP: 128/893 mmHg Rhythm: Atrial Fibrillation Other Information Study Quality: Good Indications RV dysfunction 2D Dimensions IVSd: 12.93 (7-11mm) LVOT Diam: 19.70 (18-24mm) LVDd: 51.30 mm PWd: 12.46 (7-11mm) Ascending Ao: 32.03 (22-36mm) LVDs: 29.03 (25-40mm) Aortic Root: 30.36 mm Volumes Left Atrial Volume (Systole) LA ESV Index: 53.20 mL/m2 Aortic Valve AoV Peak Kal.: 2.93 m/s AO Peak Gr.: 34.42 mmHg LVOT Max P.39 mmHg AO Mean Gr.: 19.11 mmHg LVOT Mean P.01 mmHg LVOT Max V: 1.16 m/s AO V2 VTI: 56.10 cm LVOT Mean V: 0.82 m/s ALEXX (VTI): 1.36 cm2 LVOT V1 VTI: 25.06 cm TDI Lateral E' Kal.: 0.16 m/[place] [address] 2 D/M-MODE ECHOCARDIOGRAM Name: JOE BREWSTER Room: [address] IN ..#: [id number] Admission: 08/21/19 Attend Phys: Marky Frey Discharge: Date of : 38 Date of Service: 08/21/19 1538 Report #: [id number] PV Peak Kal.: 1.69 m/s PV Peak Gr.: 11.49 mmHg Tricuspid Valve RAP Estimate: 15.00 mmHg TR Peak Gr.: 55.54 mmHg RVSP: 70.00 mmHg PA Pressure: 70.00 mmHg Left Ventricle The left ventricle is normal size. There is normal LV segmental wall motion. Mild concentric left ventricular hypertrophy. Left ventricular systolic function is normal. LVEF is 60-65%. This study is not technically sufficient to allow evaluation of the LV diastolic function. Right Ventricle Right ventricle is dilated. The right ventricular systolic function is normal. Atria Left atrium is severely dilated. Right atrium is moderately dilated. Aortic Valve Moderate aortic valve sclerosis. No aortic regurgitation is present. Moderate aortic stenosis. Mitral Valve There is mitral annular calcification. Mild mitral regurgitation. No evidence of mitral valve stenosis. Tricuspid Valve The tricuspid valve is normal in structure. Mild tricuspid regurgitation. Severe pulmonary hypertension. Pulmonic Valve The pulmonary valve is normal in structure. Trace pulmonic regurgitation. Great Vessels The aortic root is normal in size. IVC is dilated and collapses <50% with inspiration. Pericardium There is no pericardial effusion. <Conclusion> [place] [address] 2 D/M-MODE ECHOCARDIOGRAM Name: JOE BREWSTER Room: [address] IN [facility]#: [id number] Admission: 08/21/19 Attend Phys: Marky Frey Discharge: Date of : 38 Date of Service: 08/21/19 1538 Report #: [id number] The left ventricle is normal size. Mild concentric left ventricular hypertrophy. Left ventricular systolic function is normal. LVEF is 60-65%. This study is not technically sufficient to allow evaluation of the LV diastolic function. Right ventricle is dilated. Left atrium is severely dilated. Right atrium is moderately dilated. Moderate aortic valve sclerosis. Moderate aortic stenosis. Mild mitral regurgitation. Mild tricuspid regurgitation. Severe pulmonary hypertension. Trace pulmonic regurgitation. IVC is dilated and collapses <50% with inspiration. <ELECTRONICALLY SIGNED> By: Randell Martinez MD, FACC 08/21/19 1538 1538 1538 Randell Martinez MD, FACC /INF
--- NOTE | 2019-08-21 17:08 | NUR ---
WOUND CARE NOTE: REQUESTED TO SEE PER PATIENT'S RN 0.3X0.3X0.1 DIABETIC FOOT ULCER TO THE RIGHT HEEL. SHAUNA-WOUND INTACT. WOUND BED IS DRY, YELLOW. NO S/S OF INFECTION. CLEANSED WITH WOUND CLEANSER, PATTED DRY. APPLIED PURACHOL AG AND BORDERED FOAM. FAMILY MEMBER STATES THE PATIENT IS SEEN AT OUR WOUND CENTER BY DR. NELSON. PATIENT TOLERATED DRESSING CHANGE WELL. RECOMMEND KEEP HEEL OFF BED DRESSING CHANGES M-W- ENCOURAGE GOOD NUTRTION/HYDRATION FOLLOW UP IN WOUND CENTER UPON DISCHARGE
[2019-08-21 19:41] LABS: CALCIUM 7.9 mg/dL (8.5-10.1); MAGNESIUM 2.5 mg/dL (1.8-2.4)
[2019-08-21 19:42] LABS: CREATININE 4.7 mg/dL (0.6-1.3)
[2019-08-21 19:43] LABS: POTASSIUM 6.5 mmol/L (3.5-5.1)
[2019-08-21 23:29] LABS: BE -4.6 mmol/L (-2 to +3); PCO2 VENOUS 40.8 mmHg (41.0-51.0); PO2 VENOUS 54.4 mmHg (35.0-45.0)
[2019-08-21 23:50] LABS: CALCIUM 7.9 mg/dL (8.5-10.1); CREATININE 4.5 mg/dL (0.6-1.3); POTASSIUM 5.9 mmol/L (3.5-5.1)
[2019-08-22] VITALS (20 sets, daily range): BP systolic 90–157; BP diastolic 26–76
[2019-08-22 04:03] LABS: CALCIUM 7.8 mg/dL (8.5-10.1); CREATININE 4.6 mg/dL (0.6-1.3); POTASSIUM 5.5 mmol/L (3.5-5.1)
--- NOTE | 2019-08-22 08:24 | NUR ---
RECEIVED REPORT AND ASSUMED CARE AT 1900. VSS. ICU MONITORING IN PLACE. PT DENIES COMPLAINTS OF PAIN. ASSESSMENT COMPLETED CHARTED. BED LOCKED IN LOWEST POSITION, CALL LIGHT WITHIN REACH. MEDICATION PER ORDERS. HEELS OFF LOADED. ROUNDING COMPLETED AND ALL NEEDS MET
--- NOTE | 2019-08-22 11:09 | NUR ---
ICU ROUNDS AND CM ASSESSMENT: VISITED WITH PT AND DAUGHTERS IN ROOM. PT IS HAVING A PERMANENT PACEMAKER PLACED TODAY. PT LIVES AT HOME WITH HER 2 DAUGHTERS. HER DTR FRIDA IS PT'S PAID CAREGIVER THROUGH [employer]. SHE DOES HER MEDICATIONS AND ASSISTS WITH ADLS. BOTH DAUGHTERS ASSIST WITH TRANSPORTATION,COOKING AND CLEANING. PT USES A WALKER AND A WC. HAS A BSC NEAR HER BED. WEARS O2@ NIGHT THROUGH [facility]. PT IS NOT INTERESTED TO A SNF AT [place] AND IS UNSURE IF HH WOULD BE BENEFICIAL SINCE HER DTRS DO HER CARE. PT WILL LIKELY STAY OVER THE WEEKEND. CM WILL CONTINUE TO FOLLOW
[2019-08-22 11:15] LABS: HEMATOCRIT 32.6 % (37.0-47.0); MCH 28.7 pg (26.0-34.0); MCHC 33.6 g/dL (28.0-37.0); MCV 85.3 fL (80.0-100.0); MPV 9.2 fl. (7.2-11.1); RBC 3.82 mil/uL (4.20-5.00); RDW-CV 14.7 % (10.5-14.5); WBC 17.3 thou/uL (4.0-11.0)
--- NOTE | 2019-08-22 11:52 | NUR ---
Nutrition: consulted for wound, DM ulcer noted to be healing well. Discussed importance of adeqyate protein intake. RFT's elevated, K+ elevated, albumin mildly low. Pt reported poor appetite/intake for 4 days NETWORK TECHNICAL ANALYST, NPO for breakfast this am, but is hungry for lunch. Assess at low nutrition risk at this time. Billing Assistant noted pt may need HD soon, and recommended low potassium diet yesterday. Rec considering low Na and CHO controlled diets as appropriate.
--- NOTE | 2019-08-22 12:00 | NUR ---
PATIENT TRANSPORTING TO SEE SUPERVISOR AT THIS TIME FOR PERMANENT PACEMAKER PLACEMENT
--- NOTE | 2019-08-22 12:58 | EKG ---
[place] [address] ELECTROCARDIOGRAM REPORT Name: JOE BREWSTER Room: [address] ADM IN .R.#: [id number] Admission: 08/21/19 Attend Phys: Huber Ambrose Discharge: Date of : 38 Report #: [id number] THIS REPORT FOR: //name// [facility] ED Test Date: 2019-08-21 Test Time: 05:35:24 Pat Name: JOE BREWSTER Department: Room: [facility] Gender: F Juice Weigher: AJ : 1940 Requested By: Herrera Casiano Order Number: [id number] MD: Cuco Rosario Measurements Intervals [place] Rate: 50 P: 0 VA: 188 QRS: -1 QRSD: 148 T: 65 QT: 514 QTc: 469 Interpretive Statements Bradycardic wide QRS rhythm Nonspecific intraventricular conduction delay Compared to ECG 04/21/2019 12:20:26 Intraventricular conduction delay now present Right bundle-branch block no longer present Electronically Signed On 08-22-2019 12:58:03 ACOUSTICAL TILE CARPENTERS SUPERVISOR by Cuco Rosario [email or web address] <ELECTRONICALLY SIGNED> By: Cuco Rosario MD, [facility] 08/22/19 1258 0535 0535 Cuco Rosario MD, [facility] /EPI
--- NOTE | 2019-08-22 13:41 | NUR ---
PATIENT BACK FROM ESTATE PLANNING ATTORNEY FROM PACEMAKER INSERTION
--- NOTE | 2019-08-22 14:03 | CON ---
[address] [address] CONSULTATION Name: JOE BREWSTER Room: [address] IN .R.#: [id number] Admission: 08/21/19 Attend Phys: Huber Ambrose Discharge: Date of : 38 Report #: [id number] THIS REPORT FOR: //name// CC: Eliseo Frey I was asked to see this 79-year-old lady for acute respiratory failure. HISTORY OF PRESENT ILLNESS: The patient has chronic kidney disease, hypertension, diabetes mellitus, atrial fibrillation. She presented to the Emergency Room with increased shortness of breath. She has not made much urine. Her creatinine was found to be worse. Her chest x-ray did show cardiomegaly and pulmonary edema. She was found to have a bradycardia. Temporary pacemaker was placed, yesterday afternoon. Her shortness of breath has improved tremendously. The pacemaker is set at the rate of 60 and her rhythm is paced. She is a lifelong nonsmoker. Denies COPD or asthma, but she presented with wheezing and is on steroid. She has obstructive sleep apnea-hypopnea syndrome, has not been able to tolerate CPAP, so she is on oxygen at night only at home. She was not able to tolerate anticoagulation. She developed GI bleeding. She is only on aspirin for atrial fibrillation. Her shortness of breath has improved. She denies any cough more than usual. She denies chest pain, fever or chills. PAST MEDICAL HISTORY: CHF, chronic kidney disease, atrial fibrillation, diabetes mellitus, hypertension, history of femur fracture, had surgery in January of last year. She was not allowed to put weight on it until recently, so she is very inactive. ALLERGIES: No known drug allergies. MEDICATIONS: Currently, she is on Solu-Medrol 40 b.i.d., heparin drip, Pulmicort, DuoNeb. She did receive Rocephin. SOCIAL HISTORY: She is a lifelong nonsmoker. FAMILY HISTORY: Hypertension. REVIEW OF SYSTEMS: As mentioned as above, other systems otherwise negative. PHYSICAL EXAMINATION: GENERAL: This is an obese lady. VITAL SIGNS: Her O2 saturation is 94% on 3 liters of oxygen, respiratory rate 20, heart rate 60, blood pressure 157/42, temperature 36.7. HEENT: Normocephalic, atraumatic. Pupils are equal, round, and reactive to light. There is shallow oropharynx. Nose is clear. NECK: Short and thick. There is no lymphadenopathy [place] [address] CONSULTATION Name: JOE BREWSTER Room: [address]#: [id number] Admission: 08/21/19 Attend Phys: Huber Ambrose Discharge: Date of : 38 Report #: [id number] CARDIOVASCULAR: Irregular rhythm. PMI is nondisplaced. CHEST: Inspection is normal. LUNGS: Bibasilar crackles, dullness at the bases. There is no wheezing. ABDOMEN: Soft and obese. Bowel sounds are good. There is no mass. EXTREMITIES: There is no edema. LYMPHATICS: There is no lymphadenopathy. LABORATORY DATA: I reviewed the following lab data. Chest x-ray shows cardiomegaly, increased vascular marking. CT without contrast showed small bilateral pleural effusion, bibasilar atelectasis, enlarged thyroid gland, left adrenal myelolipoma. Lower extremity venous Doppler was negative. WBC 15.3, hemoglobin 11.3, platelets 192. Sodium 134, potassium 5.5, chloride 97, CO2 of 21, BUN 103, creatinine 4.6, glucose 333, lactic acid 3.4. Troponin less than 0.06. BNP 3227. ABG done yesterday, pH 7.32, pCO2 of 31, pO2 of 56 on 2 liters of oxygen. INR 1.1, PTT 84.4. Echocardiogram did show ejection fraction of 60% to 65%, mild concentric left ventricular hypertrophy, right ventricle is dilated, left atrium is severely dilated, right atrium is moderately dilated, moderate aortic valve sclerosis, moderate aortic stenosis, mild mitral regurgitation, mild tricuspid regurgitation, severe pulmonary hypertension. IMPRESSION: 1. Acute respiratory failure secondary to acute diastolic congestive heart failure, volume overload with worsening of her kidney function, bradycardia requiring temporary pacemaker, rule out thromboembolic disease versus others. 2. Atrial fibrillation. 3. Bradycardia status post temporary pacemaker. 4. Acute on chronic renal failure. 5. Hypertension. 6. Diabetes mellitus. 7. Pulmonary hypertension, secondary due to diastolic congestive heart failure, valvular disease, obstructive sleep apnea-hypopnea syndrome, rule out thromboembolic disease versus others. 8. Obstructive sleep apnea-hypopnea syndrome, CPAP intolerant. PLAN AND RECOMMENDATIONS: 1. I titrate FiO2 to keep O2 saturation 92%. 2. Her shortness of breath has improved tremendously with temporary pacemaker, Cardiology to decide on permanent pacemaker. 3. She has secondary pulmonary hypertension. We need to rule out thromboembolic disease. Unfortunately, her kidney function would not allow CT angiogram, lower extremity venous Doppler is negative. We cannot do a V/Q scan since she has a temporary pacemaker and is in ICU. I may consider V/Q scan when the temporary pacemaker is removed. The other problem is she has not been able to tolerate anticoagulation previously due to GI bleeding. 4. Nephrology is consulted. She may require hemodialysis. She is considering it now. [address] [address] CONSULTATION Name: JOE BREWSTER Room: [address] IN .R.#: [id number] Admission: 08/21/19 Attend Phys: Huber Ambrose Discharge: Date of : 38 Report #: [id number] 5. I will decrease Solu-Medrol to daily. We will quickly taper her steroids. 6. Continue bronchodilator at this time. 7. Monitor closely in ICU. The findings and recommendations were discussed with the patient and RN. I have answered all of her questions. She understood and agreed to proceed with the plan. Thank you very much for allowing me to participate in care of this very nice lady. <ELECTRONICALLY SIGNED> By: Kingsley Pride MD 08/22/19 1403 0921 1024Kingsley Pride MD /phoebe
--- NOTE | 2019-08-22 18:16 | NUR ---
PATIENT PROGRESSING WELL TOWARDS GOALS. TELE STATUS AT THIS TIME. IMMOBILIZER IN PLACE SO PATIENT DOES NOT LIFT ARM AFTER INSERTION. INCISION CLEAN/DRY/INTACT. ALL QUESTIONS ANSWERED. RESTING COMFORTABLY IN BED. HEPARIN AND INSULIN GTT RESUMED PER DR BENITEZ. GLUCOSE CHECKS Q2H. BED IN LOWEST POSITION, CALL LIGHT IN REACH.
[2019-08-23] VITALS: BP 163/55
--- NOTE | 2019-08-23 02:43 | NUR ---
ASSUMED CARE OF PT AT 2000 FROM ICU. PT IS ALERT AND ORIENTED. VSS. PERRLA. PTS BLOOD SUGAR STABLE. INSULIN DRIP DISCONTINUED. PT IS VPACED ON THE TELEMETRY. PT IS RESTING COMFORTABLY INBED. RESPIRATIONS ARE EVEN AND NONLABORED. WILL CONTINUE TO MONITOR PT.
[2019-08-23 04:00] VITALS: BP 134/55
[2019-08-23 05:44] LABS: ALBUMIN 2.8 g/dL (3.4-5.0); CALCIUM 7.4 mg/dL (8.5-10.1); CREATININE 4.7 mg/dL (0.6-1.3); POTASSIUM 5.5 mmol/L (3.5-5.1); TOTAL BILIRUBIN 0.4 mg/dL (<0.1-1.0); TOTAL PROTEIN 5.9 g/dL (6.4-8.2)
--- NOTE | 2019-08-23 06:00 | NUR ---
pts ptt is 87.1. HEP REDUCED BY 2U/KG. NOW AT 1284 U/HR
[2019-08-23 08:00] VITALS: BP 127/50
[2019-08-23 11:30] VITALS: BP 112/50
--- NOTE | 2019-08-23 11:50 | CARD ---
[address] [address] CARDIAC CATH REPORT Name: JOE BREWSTER Room: [address] IN [facility]#: [id number] Admission: 08/21/19 Attend Phys: Huber Ambrose Discharge: Date of : 38 Report #: [id number] THIS REPORT FOR: //name// APPROVED REPORT Study performed: 08/22/2019 11:53:01 Patient Status: In-Patient Room #: Event Personnel: Randell Martinez Tub Tender, Ashly Toledo RN Financial Legal Assistant, Herrera Stout Scrub, Racheal Haynes RTChente Monitor Exam: Insertion of Dual Chamber Permanent Pacemaker The patient is a 79 year-old female with a history of . Conscious Sedation Start time: 12:40 End Time: 13:24 Versed 2 mg Implanted Devices: Biotronik Eluna 8 DRT, serial #[id number] dual-chamber pulse generator. Biotronik Solia S 53, serial #[id number] atrial lead. Biotronik Solia S 60, serial #[id number] ventricular lead. Procedure The patient underwent informed consent. We discussed the details of the procedure including the risks, which include, but not limited to bleeding, infection, vascular damage, cardiac perforation, and pneumothorax. She understood these risks and was willing to proceed. As such, she was brought to the EP/Cardiac Catheterization laboratory in a fasting and sedated state and prepped and draped in a sterile fashion, received IV antibiotics prior to initiation of the procedure and a venogram was performed showing patency of the left axillary vein. The patient underwent conscious sedation, with no related complications. The patient was brought to the EP/Cardiac Catheterization laboratory and the left chest and shoulder were prepped and draped in a sterile manner. During this case, Fluoroscopy and a venogram were used for imaging. The left subclavian region was infiltrated with 2% Lidocaine with Epinephrine subcutaneous anesthesia. A transverse incision was made in the left [place] [address] CARDIAC CATH REPORT Name: JOE BREWSTER Room: [address]#: [id number] Admission: 08/21/19 Attend Phys: Huber Ambrose Discharge: Date of : 38 Report #: [id number] The subcutaneous pocket was formed via blunt dissection. Percutaneous venous access was achieved and an introducer sheath was inserted into the left Subclavian vein. Utilizing fluoroscopic guidance, the atrial and ventricular lead wires were advanced over the wires and positioned in the right atria and right ventricle respectively. Capturing and sensing thresholds were verified. Electrode Parameters P Wave: atrial fibrillation R Wave: 11 mV Atrial Threshold: atrial fibrillation Ventricular Threshold: 1.3 V at 0.40 ms Atrial Resistance: 497 ohms Ventricular Resistance: 867 ohms Dual Chamber The atrial and ventricular leads were then secured using 0 silk sutures. The subcutaneous pocket was irrigated with ancef antibiotic solution.The atrial and ventricular leads were attached to the appropriate receptacles on the pulse generator and set screws firmly tightened to insure adequate contact and stability. The lead and pulse generator were placed into the subcutaneous pocket. Sharp and sponge counts were confirmed to be correct. At this time the pocket was closed subcutaneously with a 2.0 Vicryl and the skin was closed with a 4.0 Vicryl. The operative site was dressed in sterile fashion with benzoin spray, steri strips, tegaderm and the patient was transferred to the floor in stable condition. Complications The patient tolerated the procedure well and there were no complications associated with the procedure. Conclusion 5.3 fluoro minutes. 108 mGy. 2609 DAP. 35 ml visipague. 2 gms Ancef IV. 1 gm Ancef to pocket. 1. Atrial fibrillation with underlying heart block. 2. Successful placement of a permanent pacemaker with atrial and ventricular [place] [address] CARDIAC CATH REPORT Name: JOE BREWSTER Room: [address]#: [id number] Admission: 08/21/19 Attend Phys: Huber Ambrose Discharge: Date of : 39 Report #: [id number] Recommendations 1. Follow-up site check in one week. <ELECTRONICALLY SIGNED> By: Randell Martinez MD, FACC 08/23/19 1149 1149 1149Michaedelfin Martinez MD, FACC /INF
--- NOTE | 2019-08-23 11:51 | CARD ---
[address] [address] CARDIAC CATH REPORT Name: JOE BREWSTER Room: [address] IN [facility]#: [id number] Admission: 08/21/19 Attend Phys: Huber Ambrose Discharge: Date of : 38 Report #: [id number] THIS REPORT FOR: //name// APPROVED REPORT Study performed: 08/21/2019 17:19:47 Patient Status: In-Patient Room #: Event Personnel: Randell Martinez Kennel Operator, Bushra Velez RN, Nael Ford RTR Scrub, Adrianna Skinner RTR Monitor Exam: Temporary Pacemaker Placement The patient is a 79 year-old female with a history of . Conscious Sedation No sedation was given. Case start time was 18:01 and case end time was 18:07 Procedure The patient underwent informed consent. We discussed the details of the procedure including the risks, which include, but not limited to bleeding, infection, vascular damage, cardiac perforation, and pneumothorax. Capturing and sensing thresholds were verified. The patient was brought down to the worm farm laborer for procedure. The patient's right groin was prepped and drapped in sterile fashion. The right groin was infiltrated with 2% lidocaine. Then the right femoral vein was accessed and a 5 Fr sheath was inserted. The temporary pacemaker was inserted into the right ventricle. The lead was tested for capture and thresholds. Heart rate was 68 and MA was 10. The temporary pacemaker was then secured with a 0 silk suture to the groin and dressed with a sterile dressing. Before the case, the patient's heart rate was in the 30's. After the case, the patient's heart rate was 68 with a blood pressure or 164/79. Complications The patient tolerated the procedure well and there were no complications associated with the procedure. Findings Specimens Removed: No Estimated Blood Loss: <5ml Conclusion 1. Atrial fibrillation with [place] [address] CARDIAC CATH REPORT Name: JOE BREWSTER Room: [address]#: [id number] Admission: 08/21/19 Attend Phys: Huber Ambrose Discharge: Date of : 39 Report #: [id number] response. 2. Successful placement of a temporary pacemaker via the right femoral vein. Recommendations 1. Consider pacemaker placement. <ELECTRONICALLY SIGNED> By: Randell Martinez MD, FACC 08/23/19 1150 49 [id number] Martinez MD, FACC /INF
--- NOTE | 2019-08-23 14:14 | NUR ---
ASSUMED CARE OF PATIENT THIS AM AT 0730. PATIENT IS ALERT AND ORIENTED X 4. SHE DENIES PAIN AND DISCOMFORT. PATIENT HAS HAD HER SLING ON HER LEFT ARM MOST OF THE DAY. TELE SHOWS INTERMITTENT V PACED RHYTHM WITH UNDERYING A FIB. HER FERRARO IS TO DD. PATIENT IS NOT ON A ORDERED FLUID RESTRICTION BUT HER FLUIDS ARE BEING MONITORED. IN TO ROUND AND INSTRUCTED PATIENT THAT SHE DID NOT HAVE TO CONTINUE TO WEAR HER SLING. HEPARING GTT CONTINUES AT UNCHANGED RATE. HER NOON APTT WAS THERAPUETIC AND NO CHANGES WERE MADE. PATIENT ENCOURAGED TO TURN Q 2 HR. HER BLOOD SUGARS CONTINUED >300 WILL ADVANCE TO VERY HIGH DOSE SLIDING SCALE THIS EVENING.
[2019-08-23 16:00] VITALS: BP 90/68
[2019-08-23 20:00] VITALS: BP 137/66
[2019-08-24] VITALS: BP 121/60
[2019-08-24 04:00] VITALS: BP 121/59
[2019-08-24 05:30] LABS: HEMOGLOBIN 9.2 gm/dL (12.0-15.0); MCH 28.9 pg (26.0-34.0); MCHC 34.1 g/dL (28.0-37.0); MCV 84.7 fL (80.0-100.0); MPV 8.2 fl. (7.2-11.1); RBC 3.18 mil/uL (4.20-5.00); RDW-CV 14.6 % (10.5-14.5); WBC 12.7 thou/uL (4.0-11.0)
[2019-08-24 06:11] LABS: ALBUMIN 2.5 g/dL (3.4-5.0); CALCIUM 7.2 mg/dL (8.5-10.1); CREATININE 3.8 mg/dL (0.6-1.3); MAGNESIUM 2.7 mg/dL (1.8-2.4); TOTAL BILIRUBIN 0.4 mg/dL (<0.1-1.0); TOTAL PROTEIN 5.5 g/dL (6.4-8.2)
[2019-08-24 08:00] VITALS: BP 110/42
[2019-08-24 12:00] VITALS: BP 129/54
--- NOTE | 2019-08-24 13:23 | NUR ---
ASSUMED CARE OF PATIENT THIS AM AT 0730. PATIENT IS ALERT AND ORIENTED X 4. SHE DENIES PAIN AND DISCOMFORT. POTASSIUM 6.0 THIS AM. PATIENT TX WITH IV D50 AND REGULAR INSULIN SEE OCT. K+ NOW 5.3. HEPARIN GTT INFUSING AT 1284 UNITS /HR. PATIENT IS HAVING LARGE AMOUNTS OF STOOL FROM COLOSTOMY. BLOOD SUGARS REMAIN ELEVATED. TELE SHOWS SR WITH BBB WITH INTERMITTENT PACER BEATS AND AFIB. O2 REMAINS AND 2 LITERS. WILL CONTINUE TO MONITOR I AND O'S, SAFETY, BLOOD SUGARS AND LABS.
[2019-08-24 16:00] VITALS: BP 119/52
[2019-08-25] VITALS (7 sets, daily range): BP systolic 114–1145; BP diastolic 55–63
[2019-08-25 04:56] LABS: HEMATOCRIT 25.9 % (37.0-47.0); HEMOGLOBIN 8.8 gm/dL (12.0-15.0); MCH 28.8 pg (26.0-34.0); MCV 84.6 fL (80.0-100.0); MPV 7.8 fl. (7.2-11.1); RBC 3.06 mil/uL (4.20-5.00); RDW-CV 14.7 % (10.5-14.5); WBC 10.2 thou/uL (4.0-11.0)
[2019-08-25 05:14] LABS: CALCIUM 6.7 mg/dL (8.5-10.1); CREATININE 3.2 mg/dL (0.6-1.3); POTASSIUM 4.7 mmol/L (3.5-5.1)
--- NOTE | 2019-08-25 06:14 | NUR ---
ASSUMED PT CARE AT 1930. NURSING ASSESSMENT COMPLETED AT START OF SHIFT. PT VOICED NO CONCERNS.AFIB/V PACED ON SHOE MAKER. Q2 HOUR REPOSITIONING COMPLETED. HIGH FALL PRECAUTIONS IN PLACE. HOURLY ROUNDING COMPLETED. PT DENIES PAIN. CALL LIGHT WITHIN REACH.
--- NOTE | 2019-08-25 16:47 | NUR ---
VSS, PT VPACED ON TELE,A&OX4, PATIENT EXPERIENCED NAUSEA FOR A LARGE PART OF DAY. PATIENT UP WITH MAX ASSIST AND WALKER, PT WAS NOT WILLING TO GET OUT OF BED DUE TO NAUSEA AND VOMITTING. PATIENT HAS HEMATOMA ON PACEMAKER SURGICAL SITE, PHYSICIAN AWARE. HOURLY ROUNDING PERFORMED, POSSESSIONS AND CALL LIGHT WITHIN REACH.
[2019-08-25 17:42] LABS: HEMOGLOBIN 9.5 gm/dL (12.0-15.0)
[2019-08-26 04:00] VITALS: BP 113/53
[2019-08-26 05:41] LABS: HEMATOCRIT 25.3 % (37.0-47.0); HEMOGLOBIN 8.9 gm/dL (12.0-15.0); MCH 29.5 pg (26.0-34.0); MCHC 35.1 g/dL (28.0-37.0); MCV 84.2 fL (80.0-100.0); MPV 7.4 fl. (7.2-11.1); RDW-CV 14.2 % (10.5-14.5); WBC 10.4 thou/uL (4.0-11.0)
--- NOTE | 2019-08-26 05:56 | NUR ---
TREVERVT PATIENT CARE AT 1900. PATIENT ALERT AND ORIENTED TIMES FOUR. NO COMPLAINTS OF PAIN NOTED. REFUSES Q2 TURNS. FERRARO IN PLACE. FALL RISK PRECAUTIONS IN PLACE. EPIC BEACON ANALYST AND HOURLY ROUNDING COMPLETED CHARTED.
[2019-08-26 05:58] LABS: CREATININE 2.4 mg/dL (0.6-1.3); MAGNESIUM 2.8 mg/dL (1.8-2.4); POTASSIUM 4.5 mmol/L (3.5-5.1)
[2019-08-26 06:49] LABS: ALBUMIN 2.6 g/dL (3.4-5.0); CREATININE 2.4 mg/dL (0.6-1.3); PHOSPHORUS* 6.5 mg/dL (2.5-4.9); POTASSIUM 4.5 mmol/L (3.5-5.1)
[2019-08-26 08:00] VITALS: BP 120/65
[2019-08-26 12:25] VITALS: BP 116/59
--- NOTE | 2019-08-26 16:13 | NUR ---
RE: Heart failure medication education I provided the patient with a heart failure medication information handout. We discussed carvedilol and all patients questions were answered. Pharmacy is available for any future questions. Thank you.
[2019-08-26 17:12] VITALS: BP 120/57
--- NOTE | 2019-08-26 17:22 | NUR ---
I have reviewed the documentation by NATALY WEINSTEIN from 08/26/19 to 08/26/19 and I concur with it. MOUSTAPHA SILVA
--- NOTE | 2019-08-26 17:53 | NUR ---
VSS, A&OX4, VPACED WITH AFIB UNDERLYING RHYTHM. FERRARO, COLOSTOMY, UP MAX ASSIST WITH WALKER, LIMITED BEARING ON RIGHT LEG, HOURLY ROUNDING, POSSESSIONS AND CALL LIGHT WITHIN REACH.
[2019-08-26 23:52] VITALS: BP 137/71
--- NOTE | 2019-08-27 04:08 | NUR ---
ASSUMED CARE OF PT AT 1900. PT IS ALERT AND ORIENTED. VSS. PERRLA. NO COMPLAINTS OF PAIN. PT HAS A FERRARO IN PLACE. PT HAS A COLOSTOMY IN PLACE. PT IS IN A FIB ON THE TELEMETRY. PT IS RESTING COMFORTABLY IN BED. RESPIRATIONS ARE EVEN AND NONLABORED. WILL CONTINUE TO MONITOR PT.
[2019-08-27 04:35] VITALS: BP 107/57
[2019-08-27 06:10] LABS: CHOLESTEROL 168 mg/dL (<200); HDL CHOLESTEROL 38 mg/dL (>40); LDL CHOLESTEROL 100 mg/dL (<100); TC:HDL 4.4 Ratio (Not establshd); TRIGLYCERIDE 152 mg/dL (<150); VLDL 30 mg/dL (<40)
[2019-08-27 06:11] LABS: SERUM ASSESSMENT Clear
[2019-08-27 06:16] LABS: CREATININE 2.2 mg/dL (0.6-1.3); POTASSIUM 4.9 mmol/L (3.5-5.1)
[2019-08-27 06:32] LABS: HEMATOCRIT 24.1 % (37.0-47.0); HEMOGLOBIN 8.3 gm/dL (12.0-15.0); MCH 29.2 pg (26.0-34.0); MCHC 34.5 g/dL (28.0-37.0); MCV 84.6 fL (80.0-100.0); MPV 7.5 fl. (7.2-11.1); RBC 2.85 mil/uL (4.20-5.00); RDW-CV 14.2 % (10.5-14.5); WBC 9.4 thou/uL (4.0-11.0)
[2019-08-27 08:00] VITALS: BP 134/71
--- NOTE | 2019-08-27 08:44 | NUR ---
Spoke with Pt, plan continues to be to dc to home with HH, Pt wants to use [facility]. CM to fax referral at dc.
[2019-08-27 09:52] VITALS: BP 134/71
[2019-08-27] MEDS ORDERED: CARVEDILOL12.5 MG PO (14:30)
--- NOTE | 2019-08-27 17:09 | NUR ---
I have reviewed the documentation by NATALY WEINSTEIN from 08/27/19 to 08/27/19 and I concur with it. MOUSTAPHA SILVA
--- NOTE | 2019-09-03 09:50 | CON ---
[address] [address] CONSULTATION Name: JOE BREWSTER Room: [address] IN .R.#: [id number] Admission: 08/21/19 Attend Phys: Huber Ambrose Discharge: 08/27/19 Date of : 38 Report #: [id number] THIS REPORT FOR: //name// CC: Eliseo Frey DATE OF SERVICE: 08/22/2019 REQUESTING PHYSICIAN: Mandeep Bender MD REASON FOR CONSULTATION: Acute on chronic kidney disease. HISTORY OF PRESENT ILLNESS: The patient is an 79-year-old female, very well known to me as she follows with me in my office for chronic kidney disease, stage 4. She admitted with complaints of respiratory failure, was found to be hyperkalemic, bradycardic. Her creatinine is in her 4s now up from 2.7 at the baseline. She also developed bradycardia and territory account executive is planning to do a permanent pacemaker. PAST MEDICAL HISTORY: 1. Chronic kidney disease, stage 4, baseline creatinine around 2.7. 2. Chronic atrial fibrillation. 3. COPD. 4. Diabetes mellitus type 2. 5. Obesity. 6. Pulmonary hypertension. 7. Cardiomegaly. 8. History of colon cancer with a colostomy in place. 9. Diabetes mellitus type 2. FAMILY HISTORY: Noncontributory. MEDICATIONS: Reviewed. REVIEW OF SYSTEMS: Positive for shortness of breath on admission, better now. She received a dose of Lasix IV push. She denies chest pain, denies fever or chills, denies abdominal pain. Rest of the systems negative. PHYSICAL EXAMINATION: GENERAL: Awake, alert, oriented. VITAL SIGNS: Blood pressure is 157/42, heart rate 60, afebrile. HEENT: Pupils are round. NECK: Fatty. LUNGS: Clear. CARDIOVASCULAR: Irregular rate. ABDOMEN: Obese, soft[place] [address] CONSULTATION Name: JOE BREWSTER Room: [address]#: [id number] Admission: 08/21/19 Attend Phys: Huber Ambrose Discharge: 08/27/19 Date of : 38 Report #: [id number] LOWER EXTREMITIES: With trace edema. LABORATORY DATA: Hemoglobin 11.1, white count 15.3. Serum sodium 134, potassium 5.5, chloride 97, carbon dioxide 21, BUN 103, creatinine 4.6. ASSESSMENT: 1. Chronic kidney disease, stage 4. 2. Acute kidney injury. 3. Diabetes mellitus type 2. 4. Hyperkalemia. 5. Chronic atrial fibrillation. 6. Pulmonary hypertension. 7. Chronic obstructive pulmonary disease. PLAN: 1. Permanent pacemaker today. 2. Avoid DEBORAH inhibitors, angiotensin receptor blockers. 3. Most likely, we will need to use Lasix on a regular basis. 4. Low potassium diet. 5. Observe her renal function and it is very likely that she may require chronic dialysis. I have discussed this chronic dialysis with the patient and her family. They are agreeable to that. They will do hemodialysis and then they want to do home hemodialysis. Thank you very much. <ELECTRONICALLY SIGNED> By: Mp House MD 09/03/19 0950 [id number] House MD /nt
== END 2019-08-27 18:00 | disposition home health service (06) | DRG 242 ==
LOC: M.ERS 05:29 → M.2W 06:09 → M.TBA-ER 06:09 → M.2W 06:25 → M.ICU 18:26 → M.2W 08-22 19:05
PROVIDERS: Family Medicine; Internal Medicine; Internal Medicine Cardiovascular Disease; Internal Medicine Nephrology; Registered Nurse; ADMIT Internal Medicine
DX: I48.19 Other persistent atrial fibrillation (principal); N17.0 Acute kidney failure with tubular necrosis; I50.33 Acute on chronic diastolic (congestive) heart failure; J96.01 Acute respiratory failure with hypoxia; J18.9 Pneumonia, unspecified organism; I13.0 Hypertensive heart and chronic kidney disease with heart failure and stage 1 through stage 4 chronic kidney disease, or unspecified chronic kidney disease; N18.4 Chronic kidney disease, stage 4 (severe); D62 Acute posthemorrhagic anemia; J44.0 Chronic obstructive pulmonary disease with (acute) lower respiratory infection; Z68.41 Body mass index [BMI] 40.0-44.9, adult; E87.5 Hyperkalemia; E66.9 Obesity, unspecified; D72.829 Elevated white blood cell count, unspecified; E78.5 Hyperlipidemia, unspecified; I35.0 Nonrheumatic aortic (valve) stenosis; E11.65 Type 2 diabetes mellitus with hyperglycemia; I45.9 Conduction disorder, unspecified; J98.01 Acute bronchospasm; E11.621 Type 2 diabetes mellitus with foot ulcer; E83.51 Hypocalcemia; G47.33 Obstructive sleep apnea (adult) (pediatric); I27.20 Pulmonary hypertension, unspecified; E11.22 Type 2 diabetes mellitus with diabetic chronic kidney disease; Z90.710 Acquired absence of both cervix and uterus; Z90.49 Acquired absence of other specified parts of digestive tract; Z79.82 Long term (current) use of aspirin; Z93.3 Colostomy status; Z79.899 Other long term (current) drug therapy; Z79.4 Long term (current) use of insulin; Z85.038 Personal history of other malignant neoplasm of large intestine; Z87.81 Personal history of (healed) traumatic fracture; L97.509 Non-pressure chronic ulcer of other part of unspecified foot with unspecified severity; Z99.81 Dependence on supplemental oxygen; D63.8 Anemia in other chronic diseases classified elsewhere

== ENCOUNTER → 2019-09-03 | Outpatient (CLI) | payer MEDICARE, MEDICAID ==
[~2019-09-03] MED LIST changes: +CALCIUM PO; +CARVEDILOL12.5 MG PO; +VITAMIN C500 M1; +VITAMIN D2
== END ==
LOC: M.WC 04:25
DX: E11.622 Type 2 diabetes mellitus with other skin ulcer (principal); L89.322 Pressure ulcer of left buttock, stage 2; L89.312 Pressure ulcer of right buttock, stage 2; L98.411 Non-pressure chronic ulcer of buttock limited to breakdown of skin; E11.40 Type 2 diabetes mellitus with diabetic neuropathy, unspecified; G47.30 Sleep apnea, unspecified; I10 Essential (primary) hypertension; J45.909 Unspecified asthma, uncomplicated; F41.9 Anxiety disorder, unspecified; F32.9 Major depressive disorder, single episode, unspecified

== ENCOUNTER → 2019-09-24 | Outpatient (CLI) | payer MEDICARE, MEDICAID | LOC: M.WC 00:19 | DX: E11.622 Type 2 diabetes mellitus with other skin ulcer (principal); L89.312 Pressure ulcer of right buttock, stage 2; L89.322 Pressure ulcer of left buttock, stage 2; L98.411 Non-pressure chronic ulcer of buttock limited to breakdown of skin; L89.612 Pressure ulcer of right heel, stage 2; L97.411 Non-pressure chronic ulcer of right heel and midfoot limited to breakdown of skin; E11.40 Type 2 diabetes mellitus with diabetic neuropathy, unspecified; G47.30 Sleep apnea, unspecified; I10 Essential (primary) hypertension; J45.909 Unspecified asthma, uncomplicated; F41.9 Anxiety disorder, unspecified; F32.9 Major depressive disorder, single episode, unspecified ==

== ENCOUNTER 2019-11-01 11:18 | Inpatient (IN) | payer MEDICARE, MEDICAID ==
[~2019-11-01] VITALS: Ht 160 cm; Wt 102.6 kg
[~2019-11-01 11:18] MED LIST changes: -VITAMIN D2; +VITAMIN D2 PO
[2019-11-01 11:25] VITALS: BP 112/62
[2019-11-01] MEDS ORDERED: XARELTO15 MG PO (11:32)
[2019-11-01] MEDS ORDERED: TORSEMIDE20 MG PO (11:32)
[2019-11-01] MEDS ORDERED: AZITHROMYCIN500 MG PO (11:33)
[2019-11-01 12:23] LABS: ABSOLUTE BASOPHILS 0.1 thou/uL (0.0-0.2); ABSOLUTE EOSINOPHILS 0.5 thou/uL (0.0-0.7); ABSOLUTE LYMPHOCYTES 1.4 thou/uL (0.8-5.3); ABSOLUTE MONOCYTES 0.9 thou/uL (0.0-1.2); ABSOLUTE NEUTROPHILS 5.6 thou/uL (1.6-8.1); BASOPHILS 1.2 %; EOSINOPHILS 6.3 %; HEMATOCRIT 31.3 % (37.0-47.0); HEMOGLOBIN 10.5 gm/dL (12.0-15.0); LYMPHOCYTES 16.6 %; MCHC 33.4 g/dL (28.0-37.0); MCV 83.7 fL (80.0-100.0); MONOCYTES 10.1 %; MPV 8.3 fl. (7.2-11.1); NUCLEATED RBCS 0 /100WBC; PLATELET COUNT* 196 thou/uL (150-400); POLYS 65.8 %; RBC 3.74 mil/uL (4.20-5.00); RDW-CV 14.4 % (10.5-14.5); WBC 8.5 thou/uL (4.0-11.0)
[2019-11-01 12:24] LABS: BE 7.5 mmol/L (-2 to +3); PO2 123.5 mmHg (75.0-100.0); pH 7.382 (7.340-7.450)
[2019-11-01 12:27] LABS: PCO2 58.7 mmHg (35.0-45.0)
[2019-11-01 12:35] LABS: APTT 39.7 Seconds (25.0-31.3); INR 1.7; PROTIME 16.9 Seconds (9.20-11.50)
[2019-11-01 12:41] LABS: CALCIUM 7.7 mg/dL (8.5-10.1); CREATININE 2.2 mg/dL (0.6-1.3); POTASSIUM 4.2 mmol/L (3.5-5.1)
[2019-11-01 12:52] LABS: ALBUMIN 3.1 g/dL (3.4-5.0); MAGNESIUM 1.8 mg/dL (1.8-2.4); TOTAL BILIRUBIN 0.4 mg/dL (<0.1-1.0); TOTAL PROTEIN 6.7 g/dL (6.4-8.2)
[2019-11-01 13:19] LABS: URINE BILIRUBIN NEGATIVE (Negative); URINE BLOOD NEGATIVE (Negative); URINE CLARITY CLEAR; URINE COLOR YELLOW; URINE GLUCOSE-RANDOM NEGATIVE (Negative); URINE KETONES NEGATIVE (Negative); URINE LEUKOCYTES-REFLEX NEGATIVE (Negative); URINE NITRITE-REFLEX NEGATIVE (Negative); URINE PROTEIN NEGATIVE (Negative); URINE SPECIFIC GRAVITY 1.015 (1.005-1.030); URINE UROBILINOGEN 0.2 E.U./dl (0.2-1.0)
[2019-11-01 14:05] LABS: INFLUENZA A ANTIGEN Negative (Negative); INFLUENZA B ANTIGEN Negative (Negative)
--- NOTE | 2019-11-01 17:05 | NUR ---
1800 CALORIE ADA CARB CONTROLLED DINNER TRAY ORDERED FOR PATIENT TO BE TAKEN TO ROOM #229 AT THIS TIME.
[2019-11-01 17:53] VITALS: BP 154/87
[2019-11-01 20:00] VITALS: BP 138/64
[2019-11-02] VITALS: BP 145/71
[2019-11-02 04:30] VITALS: BP 166/83
[2019-11-02 05:01] LABS: HEMATOCRIT 34.4 % (37.0-47.0); HEMOGLOBIN 11.2 gm/dL (12.0-15.0); MCH 27.4 pg (26.0-34.0); MCHC 32.7 g/dL (28.0-37.0); MCV 83.7 fL (80.0-100.0); MPV 8.3 fl. (7.2-11.1); NUCLEATED RBCS 0 /100WBC; PLATELET COUNT* 237 thou/uL (150-400); RBC 4.11 mil/uL (4.20-5.00); RDW-CV 14.5 % (10.5-14.5); WBC 9.5 thou/uL (4.0-11.0)
--- NOTE | 2019-11-02 05:09 | NUR ---
ASSUMED CARE OF PT AFTER REPORT AT 1930. PT A&OX4. VSS. ADMISSION HISTORY & PHYSICAL ASSESSMENT COMPLETED AND CHARTED. PT ON O2 AT 3L NC. PT TRACING AFIB/PACED ON TELE. PT DENIES ANY PAIN OR DISCOMFORT. PT WITH FERRARO TO DEPENDENT DRAIN. PT ABLE TO SLEEP WELL ON BED. CALL LIGHT WITHIN REACH.
[2019-11-02 05:15] LABS: CALCIUM 8.6 mg/dL (8.5-10.1); CREATININE 2.3 mg/dL (0.6-1.3); POTASSIUM 4.5 mmol/L (3.5-5.1)
[2019-11-02 06:37] LABS: ABSOLUTE EOSINOPHILS 0.1 thou/uL (0.0-0.7); ABSOLUTE LYMPHOCYTES 0.4 thou/uL (0.8-5.3); PLATELET ESTIMATE ADEQUATE
--- NOTE | 2019-11-02 07:10 | NUR ---
CHANGE OF SHIFT, BEDSIDE REPORT GIVEN PATIENT SEEN AT BEDSIDE, IN BED RESTING ASSUMED PATIENT CARE
[2019-11-02 08:00] VITALS: BP 143/59
[2019-11-02 12:00] VITALS: BP 115/64
[2019-11-02 16:00] VITALS: BP 128/67
[2019-11-02 19:40] VITALS: BP 144/61
[2019-11-03 01:23] VITALS: BP 125/63
--- NOTE | 2019-11-03 03:40 | NUR ---
ASSUMED CARE OF PT AT 1900. PT IS ALERT AND ORIENTED. VSS. PERRLA. NO COMPLAINTS OF PAIN. VSS. PT HAS A FERRARO IN PLACE. PT HAS A COLOSTOMY IN PLACE. PT IS IN SINUS RYTHM ON THE TELEMETRY. PT IS RESTING COMFORTABLY IN BED. RESPIRATIONS ARE EVEN AND NONLABORED. WILL CONTINUE TO MONITOR PT.
[2019-11-03 04:54] LABS: ABSOLUTE LYMPHOCYTES 0.9 thou/uL (0.8-5.3); ABSOLUTE MONOCYTES 0.5 thou/uL (0.0-1.2); ABSOLUTE NEUTROPHILS 10.7 thou/uL (1.6-8.1); BASOPHILS 0.1 %; HEMATOCRIT 31.6 % (37.0-47.0); HEMOGLOBIN 10.4 gm/dL (12.0-15.0); LYMPHOCYTES 7.1 %; MCH 27.3 pg (26.0-34.0); MCHC 32.9 g/dL (28.0-37.0); MONOCYTES 4.1 %; MPV 8.2 fl. (7.2-11.1); NUCLEATED RBCS 0 /100WBC; PLATELET COUNT* 224 thou/uL (150-400); POLYS 88.7 %; RBC 3.81 mil/uL (4.20-5.00); RDW-CV 14.3 % (10.5-14.5)
[2019-11-03 05:17] LABS: CREATININE 2.3 mg/dL (0.6-1.3); POTASSIUM 4.5 mmol/L (3.5-5.1)
[2019-11-03 08:45] VITALS: BP 142/84
[2019-11-03 09:30] VITALS: BP 142/85
[2019-11-03] MEDS ORDERED: AUGMENTIN 875-1 EACH PO (10:34)
[2019-11-03] MEDS ORDERED: TESSALON PERLE100 M1 PO (10:35)
[2019-11-03] MEDS ORDERED: PREDNISONE 5 MG5 M1 PO (10:37)
--- NOTE | 2019-11-03 12:15 | NUR ---
CM SPOKE TO THE PT'S DTR TO DISUCSS THE PT'S HOME SITUATION, MOBILITY AND COGNITION, AND TO INFORM OF THE ROLE OF CM. PT'S DTR CONFIRMS THAT ALL INFO FROM THE PT'S PREVIOUS CM ASSESSEMENT WERE STILL RELEVANT. PT RESIDES AT HOME WITH HER 2 DTR'S, AND HER DTR FRIDA IS HER IN-HOME CAREGIVER. FRIDA ASSIST WITH BATHING, DRESSING, AND MEDICATIIONS. BOTH DTR'S ASSIST WITH TRANSPORTATION, COOKING, AND CLEANING. PT USES A WALKER AND W/C FOR MOBILITY. PT HAS HOME O2, AND HER DTR INFORMS THAT SHE HAS BEEN USING HOME O2 (SUPPLIED BY [employer]) AT 3L DURING THE DAY WELL. PT'S DTR INFORMS THAT SHE WILL PROVIDE TRANSPORT HOME FOR THE PT. CM INFORMED THE RN IN-CHARGE OF THE PT ABOUT THE O2 AND TRANSPORT. CM WILL REMAIN AVAILABLE TO ASSIST AND FOLLOW NEEDED.
--- NOTE | 2019-11-03 12:45 | NUR ---
PT A&OX4 VSS. HX COPD, OM 3L O2 REPORTED USE FROM HOME. PT A FIB ON MOITOR AT TIMES, STRIP ON CHART. COVID-19 CAME BACK NEGATIVE AND PT CLEARED TO DC HOME. PT HAS COLOSTOMY THAT SHE MANAGES INDEPENDENTLY. FERRARO DC'D PRIOR TO LEAVING UNIT. PT IS ACCUCHECK, SLIDING SCALE INSULIN ADMINISTERED DIRECTED. IV TO LFA DC'D PRIOR TO DC FROM UNIT. NO SWELLING/BLEEDING AT SITE. [employer] APPLIED. CLOTHING DELIVERED BY FAMILY, PT ASSISTED TO GET DRESSED BY NURSING STAFF. PT TRANSPORTED TO ENTRANCE IN BY NURSING STAFF.
== END 2019-11-03 12:40 | disposition home or self-care (01) | DRG 177 ==
LOC: M.ERS 11:18 → M.TBA-ER 13:24 → M.2W 13:24
PROVIDERS: Personal Emergency Response Attendant; ADMIT Internal Medicine
DX: J15.6 Pneumonia due to other Gram-negative bacteria (principal); J96.20 Acute and chronic respiratory failure, unspecified whether with hypoxia or hypercapnia; I13.0 Hypertensive heart and chronic kidney disease with heart failure and stage 1 through stage 4 chronic kidney disease, or unspecified chronic kidney disease; N18.4 Chronic kidney disease, stage 4 (severe); J44.1 Chronic obstructive pulmonary disease with (acute) exacerbation; I48.91 Unspecified atrial fibrillation; E11.22 Type 2 diabetes mellitus with diabetic chronic kidney disease; I50.9 Heart failure, unspecified; Z95.0 Presence of cardiac pacemaker; Z93.3 Colostomy status; Z90.49 Acquired absence of other specified parts of digestive tract; Z90.710 Acquired absence of both cervix and uterus; Z79.4 Long term (current) use of insulin; Z79.899 Other long term (current) drug therapy

== ENCOUNTER → 2020-04-20 | Outpatient (CLI) | payer MEDICARE, MEDICAID ==
[~2020-04-20] MED LIST changes: +AZITHROMYCIN500 MG PO; +PREDNISONE 5 MG5 M1 PO; +TORSEMIDE20 MG PO; +XARELTO15 MG PO
== END ==
LOC: M.RAD 14:50
PROVIDERS: ATTEND Internal Medicine Critical Care Medicine
DX: J96.11 Chronic respiratory failure with hypoxia (principal); J44.9 Chronic obstructive pulmonary disease, unspecified; J45.41 Moderate persistent asthma with (acute) exacerbation; N18.9 Chronic kidney disease, unspecified; I51.7 Cardiomegaly

== ENCOUNTER → 2020-06-29 | Outpatient (CLI) | payer MEDICARE, MEDICAID | LOC: M.ULTRA 16:14 | PROVIDERS: ATTEND Internal Medicine Critical Care Medicine | DX: I51.7 Cardiomegaly (principal); J96.11 Chronic respiratory failure with hypoxia; M71.22 Synovial cyst of popliteal space [Baker], left knee ==

== ENCOUNTER → 2020-10-01 | Outpatient (CLI) | payer MEDICARE, MEDICAID | LOC: M.RAD 12:40 | PROVIDERS: ATTEND Internal Medicine Critical Care Medicine | DX: J96.11 Chronic respiratory failure with hypoxia (principal); J45.40 Moderate persistent asthma, uncomplicated; J44.9 Chronic obstructive pulmonary disease, unspecified; N18.9 Chronic kidney disease, unspecified; I11.0 Hypertensive heart disease with heart failure; I50.9 Heart failure, unspecified ==

== ENCOUNTER → 2020-10-29 | Outpatient (CLI) | payer MEDICARE, MEDICAID | LOC: M.CT 12:30 | PROVIDERS: ATTEND Internal Medicine Critical Care Medicine | DX: J44.9 Chronic obstructive pulmonary disease, unspecified (principal); J98.11 Atelectasis; E04.1 Nontoxic single thyroid nodule; I25.10 Atherosclerotic heart disease of native coronary artery without angina pectoris ==

== ENCOUNTER 2021-01-06 19:45 | Inpatient (IN) | payer MEDICARE, MEDICAID ==
[~2021-01-06] VITALS: Ht 160 cm; Wt 115.2 kg
--- NOTE | ~2021-01-06 | EMS ---
[address] [address] EMS Patient Care Report Name: JOE BREWSTER Room: [address] IN [facility]#: [id number] Admission: 01/06/21 Attend Phys: Huber Ambrose Discharge: Date of : 38 Report #: [id number] THIS REPORT FOR: //name// Report Transmitted: 01/06/2021 21:33 EMS Care Summary [facility] [place] Incident [id number] @ 01/06/2021 18:59 Incident Location [address] [id number] Patient Joe Brewster Female, 80 Years 1940 Patient Address [address] [place] [address] Patient History Endocrine Condition - Other,Pacemaker/AICD,Chronic Obstructive Pulmonary Disease (COPD),Congestive Heart Failure (CHF),Gastro-Esophageal Reflux Disease (GERD), Patient Allergies No known allergies, Patient Medications Singulair, Albuterol, Brovana, Rhinocort, Torsemide, Carvedilol, , Lantus, NovoLog, Metolazone, Klor-Con, Chief Complaint Weakness Disposition Transported No Lights/Slemp Dispatch Reason Sick Person Transported To [facility] Narrative [facility] dispatched from [address] to residence for a sick. AOS, [facility] [address] [place] [address] EMS Patient Care Report Name: JOE BREWSTER Room: [address] IN [facility]#: [id number] Admission: 01/06/21 Attend Phys: Huber Ambrose Discharge: Date of : 38 Report #: [id number] greeted by a male outside the residence who identified as a family member and showed EMS to patient location. Upon patient contact, patient was seen sitting upright in a recliner on 3L oxygen NC eating peanut butter; no adventitious breath sounds, no gross bleeding, no obvious life threats. patient was A&O x4 with a GCS of 15 complaining of feeling weak. Patient denied weakness on one side and denied any other symptoms including pain, chest pain, SOA, dizziness, n/v, REMY, change in vision, numbness, tingling, cough, fever. Due to complaint, Inglis was performed with no deficit noted. initial vitals as charted with 4 lead showing Afib with a history of Afib. Further information was obtained. Patient and family reported that patient started complaining of feeling more tired the last week with patient having a drastic change in strength in the last hour. Patient and family advised that patient was able to stand up this morning and ambulate at her baseline but could not stand up now. Patient reported to be on 3L oxygen NC continuously as baseline with saturation in the mid 90's. Family and patient denied any recent illness in the family, denied being around anyone sick but did report granddaughter began coughing today. Patient reported getting her second COVID shot the beginning of December and denied any complications with that. Patient and family denied any recent trauma including falls and hits to the head. Patient and family denied any changes in patient urination and bowel habits including frequency, smell, and denied any blood, discharge or pain. Family and patient denied any new medications and denied any medication changes. Neither patient nor family could state if Pacemaker was defibrillator as well. Patient was assisted to transfer from sit to stand with max effort x2 and assisted to pivot to sit on the cot. Once properly seated, seatbelts x4 were applied for patient safety. Patient was placed on 3L oxygen NC EMS portable supply with capnography for additional respiratory monitoring. Patient had personal belongings of a wallet that patient maintained possession of. As patient was being moved from the residence to the unit, 4 lead was noted to change to a paced appearing rhythm with strip printed off to capture change with both mechanical and electrical capture. Patient denied onset of new symptoms with change and had no change in presentation or mentation. cot was loaded and locked in the unit. In unit, patient was placed on 3L oxygen NC main supply. due to rhythm change, 12 lead was obtained with patient noted to have converted back to Afib with no change in condition or symptoms. Physical was unremarkable with no obvious deformities, lacerations, contusions, swelling, crepitus, guarding, pain to palpation noted. Further information was obtained. patient denied recent weight gain and denied changes in being able to lay flat. No edema was noted. Patient reported she was sitting watching TV when weakness got worse and denied any changes in her daily activities. Patient medical history and medications were obtained from patient and reviewed from list provided by family. Due to possible need for medications en route, IV access was attempted as charted. Upon removal of catheter, catheter was intact with neither kinking nor shearing noted. IV site was dressed with 4x4 and cobaned for pressure. Transport initiated. En route, patient remained on 3L oxygen NC as baseline with vitals monitored as charted. patient continued to convert in and out of paced and afib [address] [address] EMS Patient Care Report Name: JOE BREWSTER Room: [address] IN [facility]#: [id number] Admission: 01/06/21 Attend Phys: Huber Ambrose Discharge: Date of : 38 Report #: [id number] with patient continuing to deny any changes in condition, onset of new symptoms, and no change in mentation or presentation. Patient comfort was attended to with position and temperature changes as requested. At destination, patient remained on 3L oxygen NC as baseline and remained on the monitor. Cyber Security Consultant Dioni witnessed patient sign EMS consent to transport and treat. Cot was unlocked, unloaded, and moved to the ER. In Er, patient was removed from the monitor and placed on 3L oxygen hospital supply. Patient was transferred from EMS cot to hospital bed via draw sheet x4. Patient maintained possession of her wallet. Verbal report was given. Transfer of care complete. Initial Vitals @19:14SpO2: 97, @19:24SpO2: 96, @19:34SpO2: 97, @19:21 @19:19P: 112,R: 18,BP: 116/73, @19:24P: 93,R: 18,BP: 122/P, @19:34P: 118,R: 18,BP: 118/P, @19:64DpRE4: 52, @19:54DsIB1: 44, @19:41VjOO7: 45, @19:19GCS: 15, @19:24GCS: 15, @19:34GCS: 15, @19:09 @19:10 @19:25Glucose: 105, Assessments @19:09MENTAL:SKIN:HEENT:LUNG SOUNDS:ABDOMEN:PELVIS//GI:EXTREMITIES:PULSE:NEURO: Impression Cardiac arrhythmia/dysrhythmia Procedures @19:09Oxygen Complications: ,Response: Unchanged@19:24 cc () Site: Antecubital-RightResponse: UnchangedFailed@19:03BXIV6 digital capnographyResponse: UnchangedSucceeded@19:33BVFU1 digital capnographyResponse: UnchangedSucceeded@19:20TDNK0 digital capnographyResponse: UnchangedSucceeded@19:2112-Lead ECGResponse: UnchangedSucceeded Timeline 00:00,Call Received 18:56,Dispatch Notified 18:56,[place] [address] EMS Patient Care Report Name: JOE BREWSTER Room: [address] IN [facility]#: [id number] Admission: 01/06/21 Attend Phys: Huber Ambrose Discharge: Date of : 38 Report #: [id number] 18:59,Dispatched 18:59,En Route 19:08,On Scene 19:09,At Patient 19:09,Oxygen Complications: ,,Response: Unchanged 19:09,BP: / M,PULSE: ,RR: R,SPO2: Ox,ETCO2: ,BG: ,PAIN: ,GCS: , 19:10,BP: / M,PULSE: ,RR: R,SPO2: Ox,ETCO2: ,BG: ,PAIN: ,GCS: , 19:14,ETCO2 digital capnography,Response: UnchangedSucceeded, 19:14,BP: / M,PULSE: ,RR: R,SPO2: 97 Ox,ETCO2: ,BG: ,PAIN: ,GCS: , 19:14,BP: / M,PULSE: ,RR: R,SPO2: Ox,ETCO2: 52 ,BG: ,PAIN: ,GCS: , 19:19,BP: 116/73 M,PULSE: 112,RR: 18 R,SPO2: Ox,ETCO2: ,BG: ,PAIN: ,GCS: , 19:19,BP: / M,PULSE: ,RR: R,SPO2: Ox,ETCO2: ,BG: ,PAIN: ,GCS: 15, 19:21,12-Lead ECG,Response: UnchangedSucceeded, 19:21,BP: / M,PULSE: ,RR: R,SPO2: Ox,ETCO2: ,BG: ,PAIN: ,GCS: , 19:24, cc Site: Antecubital-Right,Response: UnchangedFailed, 19:24,ETCO2 digital capnography,Response: UnchangedSucceeded, 19:24,BP: / M,PULSE: ,RR: R,SPO2: 96 Ox,ETCO2: ,BG: ,PAIN: ,GCS: , 19:24,BP: 122/P M,PULSE: 93,RR: 18 R,SPO2: Ox,ETCO2: ,BG: ,PAIN: ,GCS: , 19:24,BP: / M,PULSE: ,RR: R,SPO2: Ox,ETCO2: 44 ,BG: ,PAIN: ,GCS: , 19:24,BP: / M,PULSE: ,RR: R,SPO2: Ox,ETCO2: ,BG: ,PAIN: ,GCS: 15, 19:25,BP: / M,PULSE: ,RR: R,SPO2: Ox,ETCO2: ,B,PAIN: ,GCS: , 19:26,Depart Scene 19:34,ETCO2 digital capnography,Response: UnchangedSucceeded, 19:34,BP: / M,PULSE: ,RR: R,SPO2: 97 Ox,ETCO2: ,BG: ,PAIN: ,GCS: , 19:34,BP: 118/P M,PULSE: 118,RR: 18 R,SPO2: Ox,ETCO2: ,BG: ,PAIN: ,GCS: , 19:34,BP: / M,PULSE: ,RR: R,SPO2: Ox,ETCO2: 45 ,BG: ,PAIN: ,GCS: , 19:34,BP: / M,PULSE: ,RR: R,SPO2: Ox,ETCO2: ,BG: ,PAIN: ,GCS: 15, 19:41,At Destination 19:54,Call Closed Disclaimer v1.1 Copyright 2020 [employer] This EMS Care Summary contains data elements from the applicable legal record (which may be displayed differently). It is designed to provide pertinent information for the following purposes: continuity of care, clinical quality, and state data reporting. The complete legal record is available to ED staff and administrators of the receiving hospital in [employer]'s Patient Tracker. All data is provided "as is."
[2021-01-06 19:46] VITALS: BP 118/49
[2021-01-06] MEDS ORDERED: SINGULAIR 10 MG10 MG PO (19:54)
[2021-01-06] MEDS ORDERED: VENTOLIN HFA INH8 GM INH (19:54)
[2021-01-06] MEDS ORDERED: ALBUTEROL2.5 MG/31 INH (19:55)
[2021-01-06] MEDS ORDERED: LONHALA MA25 MCG/11 INH (19:55)
[2021-01-06] MEDS ORDERED: BROVANA15 MCG/2 M INH (19:55)
[2021-01-06] MEDS ORDERED: KLOR-CON 1010 MEQ PO (19:56)
[2021-01-06] MEDS ORDERED: METOLAZONE 5 MG5 MG PO (19:56)
[2021-01-06 20:16] LABS: ABSOLUTE BASOPHILS 0.1 thou/uL (0.0-0.2); ABSOLUTE EOSINOPHILS 0.4 thou/uL (0.0-0.7); ABSOLUTE LYMPHOCYTES 1.8 thou/uL (0.8-5.3); ABSOLUTE MONOCYTES 1.3 thou/uL (0.0-1.2); ABSOLUTE NEUTROPHILS 6.3 thou/uL (1.6-8.1); BASOPHILS 1.2 %; EOSINOPHILS 3.6 %; HEMATOCRIT 37.1 % (37.0-47.0); HEMOGLOBIN 12.5 gm/dL (12.0-15.0); LYMPHOCYTES 18.5 %; MCH 29.2 pg (26.0-34.0); MCHC 33.7 g/dL (28.0-37.0); MCV 86.7 fL (80.0-100.0); MONOCYTES 13.6 %; MPV 6.7 fl. (7.2-11.1); NUCLEATED RBCS 0 /100WBC; PLATELET COUNT* 190 thou/uL (150-400); POLYS 63.1 %; RBC 4.28 mil/uL (4.20-5.00); RDW-CV 15.3 % (10.5-14.5); WBC 9.9 thou/uL (4.0-11.0)
[2021-01-06 20:19] LABS: CALCIUM 8.2 mg/dL (8.5-10.1)
[2021-01-06 20:20] LABS: POTASSIUM 2.8 mmol/L (3.5-5.1)
[2021-01-06 20:21] LABS: PROTIME 11.1 Seconds (9.20-11.50)
[2021-01-06 20:29] LABS: ALBUMIN 3.1 g/dL (3.4-5.0); MAGNESIUM 1.7 mg/dL (1.8-2.4); TOTAL BILIRUBIN 0.6 mg/dL (<0.1-1.0); TOTAL PROTEIN 6.9 g/dL (6.4-8.2)
[2021-01-06 23:16] LABS: URINE BILIRUBIN NEGATIVE (Negative); URINE BLOOD 3+ (Negative); URINE CLARITY CLEAR; URINE COLOR YELLOW; URINE GLUCOSE-RANDOM NEGATIVE (Negative); URINE KETONES NEGATIVE (Negative); URINE LEUKOCYTES-REFLEX 1+ (Negative); URINE NITRITE-REFLEX NEGATIVE (Negative); URINE PROTEIN NEGATIVE (Negative); URINE UROBILINOGEN 0.2 E.U./dl (0.2-1.0)
[2021-01-06 23:21] VITALS: BP 122/77
[2021-01-06 23:22] LABS: BACTERIA-REFLEX 1-9 Few /HPF (None Seen); SQUAMOUS >10 Many /LPF (0-3); URINE RBC 3-10 Few /HPF (0-2); URINE WBC-REFLEX 6-15 Few /HPF (0-5)
[2021-01-06 23:23] LABS: CASTS None Seen /LPF (None Seen); CRYSTALS None Seen /LPF (None Seen)
[2021-01-07 04:00] VITALS: BP 93/47
[2021-01-07 08:00] VITALS: BP 136/49
[2021-01-07 08:32] LABS: MAGNESIUM 2.4 mg/dL (1.8-2.4); POTASSIUM 3.7 mmol/L (3.5-5.1)
--- NOTE | 2021-01-07 09:56 | EKG ---
[place] [address] ELECTROCARDIOGRAM REPORT Name: JOE BREWSTER Room: [address] ADM IN M.R.#: [id number] Admission: 01/06/21 Attend Phys: Marky Frey Discharge: Date of : 38 Date of Service: 01/06/211948 Report #: [id number] THIS REPORT FOR: //name// [facility] ED Test Date: 2021-01-06 Test Time: 19:49:31 Pat Name: JOE PAULINOALL Department: Room: [facility] Gender: F Truck Driver Heavy: : 1940 Requested By: Yael Abdi Order Number: [id number] MD: Eliseo Kang Measurements Intervals [place] Rate: 94 P: ND: QRS: 35 QRSD: 133 T: -40 QT: 359 QTc: 449 Interpretive Statements Atrial fibrillation Ventricular premature complex artifact noted Baseline wander in lead(s) I,III,aVL Compared to ECG 08/21/2019 05:35:24 Ventricular premature complex(es) now present Left bundle-branch block no longer seen rate has increased Electronically Signed On 01-07-2021 9:56:07 CDT by Eliseo Kang [email or web address] <ELECTRONICALLY SIGNED> By: Eliseo Kang MD, [facility] 01/07/2156 48 48 Eliseo Kang MD, [facility] /EPI
[2021-01-07 12:00] VITALS: BP 128/55
[2021-01-07 12:53] LABS: BE 6.8 mmol/L (-2 to +3); PO2 77.5 mmHg (75.0-100.0); pH 7.389 (7.340-7.450)
[2021-01-07 13:06] LABS: PCO2 56.7 mmHg (35.0-45.0)
[2021-01-07 16:00] VITALS: BP 139/57
[2021-01-07 20:26] VITALS: BP 124/55
[2021-01-08 00:03] VITALS: BP 105/58
[2021-01-08 05:33] LABS: CALCIUM 7.7 mg/dL (8.5-10.1); CREATININE 3.7 mg/dL (0.6-1.3); HEMATOCRIT 33.8 % (37.0-47.0); HEMOGLOBIN 11.2 gm/dL (12.0-15.0); MCHC 33.2 g/dL (28.0-37.0); MCV 87.3 fL (80.0-100.0); MPV 7.1 fl. (7.2-11.1); POTASSIUM 3.3 mmol/L (3.5-5.1); RBC 3.88 mil/uL (4.20-5.00); RDW-CV 15.8 % (10.5-14.5); WBC 7.6 thou/uL (4.0-11.0)
[2021-01-08 05:42] VITALS: BP 136/77
[2021-01-08 08:30] VITALS: BP 120/51
[2021-01-08 13:58] VITALS: BP 129/63
[2021-01-08 16:00] VITALS: BP 123/61
[2021-01-08 19:57] VITALS: BP 125/66
[2021-01-09] VITALS (9 sets, daily range): BP systolic 105–139; BP diastolic 41–69
[2021-01-09 07:50] LABS: HEMOGLOBIN 10.8 gm/dL (12.0-15.0); MCH 29.7 pg (26.0-34.0); MCHC 33.6 g/dL (28.0-37.0); MCV 88.2 fL (80.0-100.0); MPV 7.2 fl. (7.2-11.1); RBC 3.63 mil/uL (4.20-5.00); RDW-CV 15.8 % (10.5-14.5); WBC 8.5 thou/uL (4.0-11.0)
[2021-01-09 07:53] LABS: CALCIUM 7.7 mg/dL (8.5-10.1); CREATININE 4.2 mg/dL (0.6-1.3)
[2021-01-10] VITALS (9 sets, daily range): BP systolic 111–158; BP diastolic 45–74
[2021-01-10 05:09] LABS: HEMATOCRIT 31.6 % (37.0-47.0); HEMOGLOBIN 10.8 gm/dL (12.0-15.0); MCH 29.6 pg (26.0-34.0); MCHC 34.1 g/dL (28.0-37.0); MCV 86.7 fL (80.0-100.0); MPV 7.2 fl. (7.2-11.1); RBC 3.65 mil/uL (4.20-5.00); WBC 7.4 thou/uL (4.0-11.0)
[2021-01-10 05:32] LABS: CALCIUM 8.2 mg/dL (8.5-10.1); CREATININE 4.5 mg/dL (0.6-1.3); POTASSIUM 4.2 mmol/L (3.5-5.1)
--- NOTE | 2021-01-10 13:37 | 2DMMODE ---
[place] [address] 2 D/M-MODE ECHOCARDIOGRAM Name: JOE BREWSTER Room: [address] IN [facility]#: [id number] Admission: 01/06/21 Attend Phys: Marky Frey Discharge: Date of : 38 Date of Service: 01/10/21 1337 Report #: [id number] THIS REPORT FOR: cc: Arun Justin MD, Meng MD Holkins, John M. MD [facility] ~ APPROVED REPORT Study performed: 01/10/2021 11:12:28 EXAM: Comprehensive 2D, Doppler, and color-flow Echocardiogram Patient Location: In-Patient Room #: [facility] Status: routine BSA: 2.10 HR: 116 bpm BP: 126/71 mmHg Rhythm: Atrial Fibrillation Other Information Study Quality: Good Indications Congestive Heart Failure Atrial Fibrillation 2D Dimensions IVSd: 17.60 (7-11mm) LVOT Diam: 20.61 (18-24mm) LVDd: 40.25 mm PWd: 13.00 (7-11mm) Ascending Ao: 31.31 (22-36mm) LVDs: 30.95 (25-40mm) Aortic Root: 29.35 mm Volumes Left Atrial Volume (Systole) LA ESV Index: 52.80 mL/m2 Aortic Valve AoV Peak Kal.: 2.42 m/s AO Peak Gr.: 23.38 mmHg LVOT Max P.62 mmHg AO Mean Gr.: 14.36 mmHg LVOT Mean P.40 mmHg LVOT Max V: 0.81 m/s AO V2 VTI: 43.59 cm LVOT Mean V: 0.55 m/s ALEXX (VTI): 1.08 cm2 LVOT V1 VTI: 14.13 [place] [address] 2 D/M-MODE ECHOCARDIOGRAM Name: JOE BREWSTER Room: [address]#: [id number] Admission: 01/06/21 Attend Phys: Marky Frey Discharge: Date of : 38 Date of Service: 01/10/21 1337 Report #: [id number] TDI Medial E' Kal.: 0.09 m/s Lateral E' Kal.: 0.10 m/s Pulmonary Valve PV Peak Kal.: 1.04 m/s PV Peak Gr.: 4.32 mmHg Tricuspid Valve RAP Estimate: 5.00 mmHg TR Peak Gr.: 44.21 mmHg RVSP: 49.00 mmHg PA Pressure: 49.00 mmHg Left Ventricle The left ventricle is normal size. There is normal LV segmental wall motion. Mild concentric left ventricular hypertrophy. Left ventricular systolic function is normal. The left ventricular ejection fraction is within the normal range. LVEF is 55-60%. This study is not technically sufficient to allow evaluation of the LV diastolic function due to atrial fibrillation. Right Ventricle The right ventricle is normal size. The right ventricular systolic function is normal. Pacemaker lead is present in the right ventricle. Atria Left atrium is moderately dilated. Right atrium is mildly dilated. Aortic Valve Moderate aortic valve sclerosis. No aortic regurgitation is present. Mild to moderate aortic stenosis. Mitral Valve There is mitral annular calcification. There is no mitral valve regurgitation noted. No evidence of mitral valve stenosis. Tricuspid Valve The tricuspid valve is normal in structure. Mild to moderate tricuspid regurgitation. Moderate pulmonary hypertension. Pulmonic Valve The pulmonary valve is normal in structure. Trace pulmonic regurgitation[place] [address] 2 D/M-MODE ECHOCARDIOGRAM Name: JOE BREWSTER Room: [address]#: [id number] Admission: 01/06/21 Attend Phys: Marky Frey Discharge: Date of : 38 Date of Service: 01/10/21 1337 Report #: [id number] The aortic root is normal in size. IVC is normal in size and collapses >50% with inspiration. Pericardium There is no pericardial effusion. <Conclusion> The left ventricle is normal size. Mild concentric left ventricular hypertrophy. Left ventricular systolic function is normal. The left ventricular ejection fraction is within the normal range. LVEF is 55-60%. This study is not technically sufficient to allow evaluation of the LV diastolic function due to atrial fibrillation. The right ventricle is normal size. Left atrium is moderately dilated. Right atrium is mildly dilated. Moderate aortic valve sclerosis. No aortic regurgitation is present. Mild to moderate aortic stenosis. There is mitral annular calcification. There is no mitral valve regurgitation noted. No evidence of mitral valve stenosis. The tricuspid valve is normal in structure. Mild to moderate tricuspid regurgitation. Moderate pulmonary hypertension. IVC is normal in size and collapses >50% with inspiration. There is no pericardial effusion. There is normal LV segmental wall motion. <ELECTRONICALLY SIGNED> By: Cuco Rosario MD, FACC 01/10/21 1337 36 133 Cuco Rosario MD, FACC /INF
[2021-01-10 13:40] LABS: BE 3.2 mmol/L (-2 to +3); PO2 86.7 mmHg (75.0-100.0); pH 7.365 (7.340-7.450)
[2021-01-10 13:41] LABS: PCO2 52.9 mmHg (35.0-45.0)
[2021-01-11 04:30] VITALS: BP 109/46
[2021-01-11 05:05] LABS: CALCIUM 8.4 mg/dL (8.5-10.1); CREATININE 4.4 mg/dL (0.6-1.3); POTASSIUM 5.1 mmol/L (3.5-5.1)
[2021-01-11 08:00] VITALS: BP 145/60
[2021-01-11 13:25] VITALS: BP 136/50
[2021-01-11 16:59] VITALS: BP 109/40
[2021-01-11 20:00] VITALS: BP 124/58
[2021-01-12] VITALS: BP 105/71
[2021-01-12 04:00] VITALS: BP 133/55
[2021-01-12 05:03] LABS: HEMATOCRIT 34.7 % (37.0-47.0); HEMOGLOBIN 11.4 gm/dL (12.0-15.0); MCHC 32.8 g/dL (28.0-37.0); MCV 88.4 fL (80.0-100.0); MPV 7.3 fl. (7.2-11.1); RBC 3.92 mil/uL (4.20-5.00); WBC 11.6 thou/uL (4.0-11.0)
[2021-01-12 05:05] LABS: CALCIUM 8.9 mg/dL (8.5-10.1); CREATININE 4.4 mg/dL (0.6-1.3); MAGNESIUM 2.2 mg/dL (1.8-2.4); POTASSIUM 4.7 mmol/L (3.5-5.1)
[2021-01-12 08:27] VITALS: BP 137/83
[2021-01-12 12:20] VITALS: BP 106/42
[2021-01-12 16:13] VITALS: BP 106/42
== END 2021-01-12 16:09 | disposition hospice, home (50) | DRG 291 ==
LOC: M.ERS 19:45 → M.TBA-ER 21:22 → M.2W 21:22
PROVIDERS: Emergency Medicine; Family Medicine; Internal Medicine; Internal Medicine Nephrology; ADMIT Internal Medicine; ATTEND Internal Medicine
DX: I13.0 Hypertensive heart and chronic kidney disease with heart failure and stage 1 through stage 4 chronic kidney disease, or unspecified chronic kidney disease (principal); I50.33 Acute on chronic diastolic (congestive) heart failure; N17.0 Acute kidney failure with tubular necrosis; N39.0 Urinary tract infection, site not specified; I48.11 Longstanding persistent atrial fibrillation; J96.10 Chronic respiratory failure, unspecified whether with hypoxia or hypercapnia; N18.4 Chronic kidney disease, stage 4 (severe); Z68.42 Body mass index [BMI] 45.0-49.9, adult; E11.22 Type 2 diabetes mellitus with diabetic chronic kidney disease; J44.9 Chronic obstructive pulmonary disease, unspecified; E87.6 Hypokalemia; E83.42 Hypomagnesemia; I25.10 Atherosclerotic heart disease of native coronary artery without angina pectoris; E66.01 Morbid (severe) obesity due to excess calories; R04.0 Epistaxis; D63.1 Anemia in chronic kidney disease; Z51.5 Encounter for palliative care; Z66 Do not resuscitate; Z20.822 Contact with and (suspected) exposure to COVID-19; Z90.710 Acquired absence of both cervix and uterus; Z93.3 Colostomy status; Z90.49 Acquired absence of other specified parts of digestive tract; Z95.0 Presence of cardiac pacemaker; Z79.4 Long term (current) use of insulin; Z79.899 Other long term (current) drug therapy